=== PATIENT | female | born 1975 | race Caucasian/White ===

== ENCOUNTER 2016-07-06 19:16 | Emergency (ER) | payer MEDICARE, MEDICAID ==
[~2016-07-06] VITALS: Ht 160 cm; Wt 63.5 kg
[~2016-07-06 19:16] MED LIST: ACETAMINOPHEN &1 TA1 PO; CIPRO 500MG TA500 MG PO; DEPO-PROVER150 MG/M1 IM; DICLOFENAC SODI75 M3 PO; ESCITALOPRAM20 MG PO; FLEXERIL10 MG PO; HYDROCODONE-APA1 TA2 PO; HYDROCODONE-APA1 TAB PO; IBU-8800 MG PO; IBUPROFEN800 MG PO; K-TAB10 MEQ PO; KEFLEX 500MG.500 MG PO; KLONOPIN1 M2 PO; MAXALT5 MG PO; NEURONTIN600 M1 PO; PERCOCET 5/3251 EACH PO; PREDNISONE 20MG20 MG PO; TIZANIDINE HCL2 MG PO; VENTOLIN H0.09 MG/Ac IH; VISTARIL25 M1 PO; ZITHROMAX Z PA250 MG PO; ZOFRAN4 MG PO
--- NOTE | 2016-07-06 20:14 | Urgent Treatment Center Report ---
History of Present Issue Date/Time Seen by Provider 07/06/162013 Visit Reason Pt arrived:Walked Presenting Problem:C/O NON PRODUCTIVE COUGH, CHEST CONGESTION, SORE THROAT X 5 DAYS Location if Accident: Onset of symptoms date/time:/ or onset unknown for:MEDICAL HX UNKNOWN Have you (or family members/close friends) recently traveled outside the [place]? N If Yes, where/when: Have you had exposure to infectious disease within the past month? TB? Other? Specify: Patient states that she has had a cough that is not productive for around a week states that she has had chest congestion and sore throat too states that she has continued to cough and no improvement in symptoms so she came to get checked out ALLERGIES Coded Allergies: ketorolac (From TORADOL) (10/05/15) naproxen (10/05/15) tramadol (10/05/15) Home Medications Active Scripts Prednisone (Prednisone 20MG) 20 MG PO BID #10 TAB Prov: 10/05/15 Hydroxyzine Pamoate (Vistaril 25MG CAP) 25 MG PO Q8H #15 CAP Prov: 10/05/15 Reported Medications Rizatriptan Benzoate (Maxalt) 5 MG PO BID PRN PRN MIGRAINE Gabapentin (Neurontin) 600 MG PO TID History Medical History General CAD? No Angina: No [place]: No Hypertension? No Hyperlipidemia? No CHF? No DVT? No PE? No COPD? No Asthma? Yes Anemia? No GERD? No Gastric ulcers? No GI Bleed? No Hernia? No Thyroid Problems? No Hypothyroidism? No CVA? No Seizures? No Diabetes? No Renal Insuffiency? No UTI? No Stones? No BPH? No GB Disease: No Nephritic Syndrome? No Asplenia? No Hepatitis? No Sickle Cell Disease? No Arthritis? Yes Migraines? No Cataracts? No Glaucoma? No MRSA? No HIV? No TB? No Anxiety? Yes Depression? No Cancer? No More? No Immunization HX DT/Tetanus > 10 Years Ago Flu Refused Pneumonia Refuses Surgical Hx Previous Surgery?Y EX LAP CYST REMOVED OVAR Tubal Ligation GALLBLADDER REMOVED BLADDER SURGERY X 2,CYSTO LT BREAST BIOPSY LAP PARTIAL HYSTERECTOMY Family History Family HX Diabetes No CAD Yes Hypertension No Hyperlipidemia No Cancer No TB No Social History Smoking Hx Smoker: Current Every Day Smoker Tobacco: Yes Type Cigarettes Packs/day < 1 Pack Alcohol Alcohol: No Review of Systems All Other Systems Reviewed and Negative ENT ear pain, nose discharge, nose congestion, throat pain, throat swelling. Respiratory cough Physical Exam Vital Signs Vital Signs Date Time Temp Pulse Resp B/P Pulse O2 O2 Flow FiO2 Ox Delivery Rate 07/06 1926 98.0 84 22 119/63 96 General Appearance normal appearance, WD/WN, no apparent distress Respiratory Status Yes: trachea midline, chest symmetrical, non tender chest. No: respiratory distress. 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 No Results/Orders Orders Procedure Date/time Status CHEST(2 VIEWS-NOT PORTABLE) 07/06 1929 Active Departure Departure Time of Disposition 2041 Disposition DC Home or Self Care(routine) Clinical Impression Primary Impression: Upper respiratory infection Qualifiers: URI type: unspecified URI Qualified Code: J06.9 - Acute upper respiratory infection, unspecified Condition STABLE Patient Instructions DI for Cough -- Adult, Sore Throat Additional Instructions Drink plenty of fluids Follow up with family doctor Over the counter Motrin or Tylenol as need for fever Take medication as prescribed Return if needed Discharge Counseling Counseled pt/family regarding diagnosis, test results, medications/RX, home care, follow up needs Prescriptions Current Visit Scripts Azithromycin (Zithromycin (Z-FLORIN) 250MG Tab) 250 MG PO DAILY #6 TAB TAKE TWO (2) TABLETS ON DAY 1, THEN ONE (1) TABLET DAY #2 THRU #5 Methylprednisolone (Medrol Dose Florin) 4 MG PO UD #1 FLORIN TAKE DIRECTED ON PACKAGING at 2045
[2016-07-06] MEDS ORDERED: MEDROL 4MG. DOSE4 MG PO (20:44)
[2016-07-06] MEDS ORDERED: ZITHROMAX Z PA250 MG PO (20:44)
--- NOTE | 2016-07-06 20:45 | RADIOLOGY REPORT PS360 ---
CHEST(2 VIEWS-NOT PORTABLE) ORDERING PHYSICIAN : FABIAN REYES APRN PATIENT AGE: 40 years GENDER: Female INDICATION: Cough congestionCHEST CONGESTION, COUGH PROCEDURE: CHEST(2 VIEWS-NOT PORTABLE) FINDINGS: Previous chest film 01/31/2015. Today's study shows no significant new findings. No focal infiltrate. No pneumothorax. No pleural effusion.. The patient has pectus excavatum deformity. With this the inward position of the inferior sternum and xiphoid yield a accentuated heart size indicates injury markings at the lung bases but this appears stable with no acute findings. Mindy and mediastinal structures unremarkable. T-spine intact. IMPRESSION ----- Stable chest Nothing definite acute at chest Pectus excavatum
[2016-07-06 21:01] VITALS: BP 119/63
== END 2016-07-06 21:03 | disposition home or self-care (01) ==
LOC: UTC 19:16
DX: J06.9 Acute upper respiratory infection, unspecified (principal); Z72.0 Tobacco use; F41.9 Anxiety disorder, unspecified

== ENCOUNTER 2017-01-29 15:29 | Emergency (ER) | payer MEDICARE, MEDICAID ==
[~2017-01-29] VITALS: Ht 160 cm; Wt 59.9 kg
[~2017-01-29 15:29] MED LIST changes: +MEDROL 4MG. DOSE4 MG PO
[2017-01-29] MEDS ORDERED: PREDNISONE 10MG10 MG PO (16:11)
--- NOTE | 2017-01-29 16:12 | Urgent Treatment Center Report ---
History of Present Issue Date/Time Seen by Provider 01/29/17 1603 Visit Reason Pt arrived:Walked Presenting Problem:PT STATES FOR 1 WEEK SHE HAS HAD A RASH ON HER ARMS. EXPOSED TO TREES AND POSSIBLY POISON RANDA. Location if Accident: Onset of symptoms date/time:/ or onset unknown for:MEDICAL HX UNKNOWN Have you (or family members/close friends) recently traveled outside the [place]? N If Yes, where/when: Have you had exposure to infectious disease within the past month? TB? Other? 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 No Angina: No [place]: No Hypertension? No Hyperlipidemia? No CHF? No DVT? No PE? No COPD? No Asthma? Yes Anemia? No GERD? No Gastric ulcers? No GI Bleed? No Hernia? No Thyroid Problems? No Hypothyroidism? No CVA? No Seizures? No Diabetes? No Renal Insuffiency? No UTI? No Stones? No BPH? No GB Disease: No Nephritic Syndrome? No Asplenia? No Hepatitis? No Sickle Cell Disease? No Arthritis? Yes Migraines? No Cataracts? No Glaucoma? No MRSA? No HIV? No TB? No Anxiety? Yes Depression? No Cancer? No More? No Immunization HX DT/Tetanus > 10 Years Ago Flu Refused Pneumonia Refuses Surgical Hx Previous Surgery?Y EX LAP CYST REMOVED OVAR Tubal Ligation GALLBLADDER REMOVED BLADDER SURGERY X 2,CYSTO LT BREAST BIOPSY LAP PARTIAL HYSTERECTOMY Family History Family HX Diabetes No CAD Yes Hypertension No Hyperlipidemia No Cancer No TB No Social History Smoking Hx Smoker: Current Every Day Smoker Tobacco: Yes Type Cigarettes Packs/day < 1 Pack Alcohol Alcohol: No Review of Systems All Other Systems Reviewed and Negative Skin rash Physical Exam Vital Signs Vital Signs Date Time Temp Pulse Resp B/P Pulse O2 O2 Flow FiO2 Ox Delivery Rate 01/29 1539 98.0 74 18 107/63 97 General Appearance normal appearance, WD/WN, no apparent distress Respiratory Status Yes: trachea midline, chest symmetrical, non tender chest. No: respiratory distress. Cardiovascular normal exam, regular rate/rhythm Neurologic alert, normal exam, oriented x 3 Skin rash, Raised liner rash like that seen with poison randa on bilateral upper arms describes as itchy raised rash Medical Decision Making LABS/Meds/Orders Pt receiving controlled substance in ED? No Results/Orders Current Medication Orders Sig/Keila Start time Last Medication Dose Route Stop Time Status Admin Methylprednisolone 125 MG ONCE ONE 01/29 1600 DC Sodium Succinate IM 01/29 1601 Departure Departure Time of Disposition 1608 Disposition DC Home or Self Care(routine) Clinical Impression Primary Impression: Poison randa dermatitis Condition STABLE Patient Instructions DI for Poison Randa Allergy, Poison Randa, Poison Crouse, Poison [place] Additional Instructions Over the counter Calamine lotion, aveeno oatmeal baths etc to help dry rash and also help with itching Take medication as prescribed Use cream to aid with rash Return if needed Follow up with family doctor Discharge Counseling Counseled pt/family regarding diagnosis, medications/RX, home care, follow up needs Prescriptions Current Visit Scripts Prednisone (Prednisone 10MG) 10 MG PO BID #10 TAB at 1612
[2017-01-29 16:14] VITALS: BP 107/63
--- OUTSIDE RECORDS SUMMARY | 2017-01-31 17:44 | External Medical Summary Rpt | CCD ---
Author Author , [facility] Organization [facility] Address Unknown Phone Care Team Providers Care Geological Specialist Name Role Phone KARINA OLSEN MD, PSC, Unavailable Unavailable KARINA OLSEN MD, PSC HERMAN CORONADO, HERMAN Unavailable Unavailable [facility] Unavailable Unavailable & INTER, [facility] RAYGOZA ALL, RAYGOZA ALL Unavailable Unavailable ERNST CON, Unavailable Unavailable ERNST CON CELLAROSI - YORBA Unavailable Unavailable PAT, CELLAROSI - YORBA PAT CHIPPS KATHERINE & Unavailable Unavailable DUBILIER, CHIPPS KATHERINE & DUBILIER [facility], Unavailable Unavailable [facility] Unavailable Unavailable [facility], [facility] ASUNCION, ASUNCION Unavailable Unavailable ASUNCION JOSE LUIS, Unavailable Unavailable ASUNCION JOSE LUIS DUDEE, JITANDER S, Unavailable Unavailable DUDEE, JITANDER S DUOSVALDO NANCY DUFF NANCY Unavailable Unavailable SARITA CHAIREZ Unavailable Unavailable SARITA DE LOS SANTOS Unavailable Unavailable EDMUNDO HAIRSTON, Unavailable Unavailable EDMUNDO STEIN JR ELZ, Unavailable Unavailable JR ANNAMARIA MIRANDA GAINEY Unavailable Unavailable YOSHI [facility] Unavailable Unavailable HOSPITA, [facility] Unavailable Unavailable [facility], [facility] JOSE EDUARDO CHRISTENSEN MD, Unavailable Unavailable Daniel BLANCO MD, Unavailable Unavailable Daniel DUBOIS RHONDA G, Unavailable Unavailable MARCIE BARRAGAN CARLOS, HARPEL Unavailable Unavailable [facility] Unavailable Unavailable INC, [facility] Unavailable Unavailable HOSPITAL P, [facility] P NANDO HUNTLEY, Unavailable Unavailable NANDO HUNTLEY [facility], Unavailable Unavailable [facility], Unavailable Unavailable [facility] ILUYOMADE ROT, Unavailable Unavailable ILUYOM[facility] ROT PILAR II PRAVEEN, PILAR Unavailable Unavailable II PRAVEEN PILAR II, JUSTIN C, Unavailable Unavailable PILAR II, JUSTIN C JEREMIAH DIONTE, JEREMIAH Unavailable Unavailable DIONTE JOHNNA SILVINA, JOHNNA Unavailable Unavailable SILVINA [facility] Unavailable Unavailable IM[facility]ING [facility], [facility] FERNANDEZ JOAO, FERNANDEZ Unavailable Unavailable JOAO FERNANDEZ JOAO, FERNANDEZ Unavailable Unavailable JOAO FERNANDEZ, EN A, Unavailable Unavailable FERNANDEZ, EN A [facility] Unavailable Unavailable [facility], [facility] SHEA CRI, SHEA CRI Unavailable Unavailable ANNIE SCOTT JR, Unavailable Unavailable ANNIE SCOTT JR JOSE, REGINE JOSE Unavailable Unavailable LORRAINE HAM, LORRAINE HAM Unavailable Unavailable [facility] Unavailable Unavailable SERVICES, [facility] SHAWNEE CAR, Unavailable Unavailable [facility] CAR NICKELS NANCY, NICKELS Unavailable Unavailable NANCY [facility], Unavailable Unavailable [facility], [facility] Unavailable Unavailable LAB, [facility] PICKLESIMER JR KEREN, Unavailable Unavailable PICKLESIMER JR KEREN NATALYA, BIPIN, NATALYA, Unavailable Unavailable BIPIN AGUIRRE PAD, AGUIRRE PAD Unavailable Unavailable AGUIRRE PAD, AGUIRRE PAD Unavailable Unavailable [facility] PIPELINE SUPERINTENDENT DIVISION, RECHTIN Unavailable Unavailable PIPELINE SUPERINTENDENT DIVISION RECHTIN PIPELINE SUPERINTENDENT DIVISION, RECHTIN Unavailable Unavailable PIPELINE SUPERINTENDENT DIVISION KOEHLER TERRI, Unavailable Unavailable KOEHLER TERRI KOEHLER TERRI, Unavailable Unavailable KOEHLER TERRI [facility] Unavailable Unavailable MANAGEMENT, [facility] AMES SHAWNEE, AMES Unavailable Unavailable SHAWN[facility] MONTEMAYOR RENTERIA, MONTEMAYOR Unavailable Unavailable RENTERIA SHIRAKBARI ALI, Unavailable Unavailable SHIRAKBARI ALI TACHO JAEGER S, Unavailable Unavailable TACHO JAEGER S [facility] Un[facility] FABIO CROW, Unavailable Unavailable [facility], Unavailable Unavailable [facility] ABAD DIONTE, Unavailable Unavailable ABAD DIONTE SERA PHI, SERA PHI Unavailable Unavailable AMENA NANDO C, Unavailable Unavailable AMENA NANDO Farnaz [facility], Unavailable Unavailable [facility] Unavailable Unavailable [address], [facility] SHERRY PEARCE, Unavailable Unavailable SHERRY PEARCE LUCIUS W, LUCIUS W Unavailable Unavailable WORKS EDWARDO, WORKS EDWARDO Unavailable Unavailable MARYA MAT, MARYA MAT Unavailable Unavailable Purpose Continuity of Care Document - 2007 through 2016 Problems Code Diagnosis DOS Provider Status Q676 PECTUS 07-06-2016 [place] [facility] R05 COUGH 07-06-2016 [place] [facility] R0989 OT SPEC SX 07-06-2016 [place] & SIGNS MEDICAL INVLV THE IMAGING ASS CIRC & RESP SYS X15239 SPONDYLOSIS 03-05-2016 [facility] W/O PAIN MYELOPATH/R MANAGEMENT ADICULOPATH Y LUMB RGN M5413 RADICULOPAT 03-05-2016 [facility] PAIN CERVICOTHOR MANAGEMENT ACIC REGION M5417 RADICULOPAT 03-05-2016 [facility] PAIN LUMBOSACRAL MANAGEMENT REGION Z5181 ENCOUNTER 03-05-2016 [facility] THERAPEUTIC DRUG LEVEL MONITORING C78110 JAIL 03-05-2016 [facility] CURRENT USE [facility] ANALGESIC U18848 OTHER LONG 03-05-2016 [facility] PAIN CURRENT MANAGEMENT DRUG THERAPY M4802 SPINAL 01-23-2016 [place] STEN[facility]IS [facility] CERVICAL IMAGING ASS REGION M5020 OTH 01-23-2016 [facility] CERVICAL [facility] DISC INC DISPLACEMEN T UNS CERV REGION M5021 OT CERV 01-23-2016 [place] DISC MEDICAL DISPLACMENT IMAGING ASS HIGH CERVICAL REG E01859 OTHER 01-23-2016 [place] CERVICAL MEDICAL DISC IMAGING ASS DEGENERATIO N AT C6-C7 LEVEL M542 CERVICALGIA 01-23-2016 [place] [facility] R410 DISORIENTAT 10-11-2015 [place] ION MEDICAL UNSPECIFIED IMAGING ASS L551 SUNBURN OF 10-05-2015 [facility] DEGREE INC Z720 TOBACCO USE 10-05-2015 [facility] INC N644 MASTODYNIA 07-24-2015 [facility] N6011 DIFFUSE 07-23-2015 [facility]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 N63 UNSPECIFIED 07-23-2015 [place] IN MEDICAL BREAST IMAGING ASS R928 OTH ABNORM 07-23-2015 [place] & MEDICAL INCONCLUSIV IMAGING ASS E FIND ON DX IMAG BREAST N3010 INTERSTITIA 06-25-2015 [facility] EDUARDO Lyon 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 N6019 DIFFUSE 06-25-2015 [facility] EDUARDO [place] 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 R102 PELVIC AND 06-07-2015 [place] PERINEAL MEDICAL PAIN IMAGING ASS R1031 RIGHT LOWER 06-07-2015 [facility] PAIN INC Z1231 ENCOUNTER 06-07-2015 [place] SCREENING MEDICAL MAMMO MALIG IMAGING ASS NEOPLASM BREAST N390 URINARY 05-24-2015 [facility] TRACT [facility] INFECTION INC SITE NOT SPECIFIED N736 FEMALE 05-24-2015 [facility] EDUARDO [place] PELVIC AMPARO TIMMONS PERITONEAL ADHESIONS POSTINFECTI VE R65868 ENCOUNTER 05-24-2015 [facility] EDUARDO [place] VOCATIONAL REHABILITATION ADMINISTRATOR EXAM AMPARO TIMMONS GENERAL RTN W/O ABNORMAL FIND Z1212 ENCOUNTER 05-24-2015 [facility] EDUARDO [place] SCREENING AMPARO TIMMONS MALIGNANT NEOPLASM RECTUM A084 VIRAL 04-24-2015 [facility] INTESTINAL [facility] INFECTION INC UNSPECIFIED J12147 UNSPECIFIED 04-24-2015 [facility] ASTHMA [facility] UNCOMPLICAT INC ED K529 NONINFECTIV 04-24-2015 [facility] GASTROENTER PLLC ITIS & COLITIS UNS R109 UNSPECIFIED 04-24-2015 [place] ABDOMINAL MEDICAL PAIN IMAGING ASS R112 NAUSEA WITH 04-24-2015 [place] VOMITING MEDICAL UNSPECIFIED IMAGING ASS R197 DIARRHEA 04-24-2015 [place] UNSPECIFIED MEDICAL IMAGING ASS N44537 PAIN IN 03-08-2015 [facility] SHOULDER [facility] M5032 OTH CERV 03-08-2015 [place] [facility] DIS[facility] SERV DEGENERATIO FOUNDATION N MID-CERVICA L REGION U01354 PAIN IN 03-08-2015 [place] [facility] RIGHT ARM SERV [facility] H6690 OTITIS 03-07-2015 [facility] MEDIA PHYSICIANS UNSPECIFIED GROUP UNSPECIFIED EAR M5010 CERVICAL 02-27-2015 [facility] DISC D/O [facility] W/RADICULOP INC ATHY UNS CERV RGN M5030 OTH 02-27-2015 KARINA OLSEN CERVICAL , PSC DISC DEGENERATIO N UNS CERV REGION M5412 RADICULOPAT 02-27-2015 KARINA OLSEN HY CERVICAL , PSC REGION J209 ACUTE 01-31-2015 [facility] BRONCHITIS [facility] UNSPECIFIED INC R945 ABNORMAL 01-31-2015 [facility] RES[facility] PHYSICIANS, LIVER PLLC FUNCTION STUDIES 7220 DISPLCMT 01-01-2015 KARINA OLSEN, CERV , PSC INTERVERT DISC WITHOUT MYELOPATHY 7234 BRACHIAL 01-01-2015 KARINA OLSEN, NEURITIS OR , PSC RADICULITIS NOS 7210 CERVICAL 12-19-2014 [place] SPONDYLOSIS MEDICAL WITHOUT IMAGING ASS MYELOPATHY 7224 DEGENERATIO 12-19-2014 [place] N OF MEDICAL CERVICAL IMAGING ASS INTERVERTEB RAL DISC 7231 CERVICALGIA 12-19-2014 [place] [facility] 7213 LUMBOSACRAL 11-09-2014 [place] MEDICAL SPONDYLOSIS IMAGING ASS WITHOUT MYELOPATHY 7242 LUMBAGO 11-09-2014 [place] [facility] 7820 DISTURBANCE 11-09-2014 [place] OF SKIN MEDICAL SENSATION IMAGING ASS 8472 LUMBAR 11-09-2014 [facility] SPRAIN AND [facility] STRAIN INC 56379 ABDOMINAL 10-05-2014 [place] PAIN RIGHT MEDICAL LOWER IMAGING ASS QUADRANT 2768 HYPOPOTASSE 09-21-2014 [facility] & INTER 15203 OTH 09-21-2014 [facility] EXTRAPYRAMI [facility]EDIATRICS HERIBERTO & INTER DZ&ABNORM MOVMNT DISORDER 18938 ABDOMINAL 09-21-2014 [facility] PAIN, PEDIATRICS UNSPECIFIED & INTER SITE 5920 CALCULUS OF 09-16-2014 [place] KID[facility] 6202 OTHER AND 09-16-2014 [facility] UNSPECIFIED PHYSICIANS, OVARIAN PLLC CYST V642 SURG/OTH 07-29-2014 [facility] PROC NOT MEM [facility] CARRIED OUT INC BECAUSE PTS DECN 7295 PAIN IN 07-17-2014 [place] SOFT MEDICAL TISSUES OF IMAGING ASS LIMB 89597 SWELLING OF 07-17-2014 [facility] LIMB [facility] INC 8439 SPRAIN&STRA 07-17-2014 [facility] IN OF [facility] UNSPECIFIED INC SITE OF HIP&THIGH 9594 INJURY 07-17-2014 [place] OTHER AND MEDICAL UNSPECIFIED IMAGING ASS HAND EXCEPT FINGER V5869 LONG-TERM 07-17-2014 [facility] (CURRENT) [facility] USE OF INC OTHER MEDICATIONS 5751 OTHER 06-25-2014 [facility] CHOLECYSTIT [facility] IS INC 5758 OTHER 06-25-2014 [facility] SPECIFIED [facility] P GALLBLADDER 65201 ABDOMINAL 06-25-2014 [facility] PAIN, LEFT [facility] P QUADRANT 486 PNEUMONIA, 06-05-2014 [facility] UNSPECIFIED & INTER 4619 ACUTE 06-03-2014 [facility] SINUSITIS, PEDIATRICS UNSPECIFIED & INTER 25721 UNSPECIFIED 05-05-[address] [facility] [address] [facility] SUBACUTE HOSPITAL P IRIDOCYCLIT IS V146 PERSONAL 05-05-[address] [facility] ALLERGY TO [facility] P ANALGESIC AGENT V148 PERSONAL 05-05-[address] [facility] ALLERGY OTCLARKS [facility] P SPEC MEDICINAL AGTS 37489 OTHER ACUTE 09-21-2013 [facility] N EMERGENCY POSTOPERATI PHYS VE PAIN 11995 UNSPECIFIED 09-21-2013 [facility] EM[facility]GENC[facility] CONSTIPATIO PHYS N 43493 ABDOMINAL 09-21-2013 [facility] PAIN OTHER MEDICAL SPECIFIED IMAGING ASS SITE V8801 ACQUIRED 09-21-2013 [place] ABSENCE OF MEDICAL BOTH CERVIX IMAGING ASS AND UTERUS 2189 LEIOMYOMA 09-19-2013 [facility] OF UTERUS, KATHERINE & UNSPECIFIED DUBILIER 6170 ENDOMETRIOS 09-19-2013 [facility] IS OF KATHERINE & UTERUS DUBILIER 6250 DYSPAREUNIA 09-19-2013 [facility] THE [facility] 6253 DYSMENORRHE 09-19-2013 [facility] A ANESTH OF THE BLUE 6259 UNSPEC 09-19-2013 [facility] SYMPTOM [facility] ASSOC INC W/FEMALE GENITAL ORGANS 6264 IRREGULAR 09-19-2013 [facility] MENSTRUAL [facility] CYCLE INC 8409 SPRAIN&STRA 08-11-2013 [facility] IN UNSPEC N EMERGENCY SITE PHYS SHOULDER&UP PER ARM E8888 OTHER FALL 08-11-2013 [facility] N EMERGENCY PHYS 69382 OTHER 01-13-2013 [facility] PAIN 70281 UNSPECIFIED 01-11-2013 [place] [facility] IN CCE & UNS SITE 48820 UNSPECIFIED 01-11-2013 [facility] PERFORATION SERVICES OF TYMPANIC MEMBRANE 14391 UNSPECIFIED 01-11-2013 [facility] 462 ACUTE 01-11-2013 [facility] PHARYNGITIS [facility]Y [facility] 7841 THROAT PAIN 01-11-2013 [facility] 43456 NAUSEA 01-11-2013 [facility] 86180 PAIN IN 05-07-2012 [facility] PELVIC HOSPITA REGION AND THIGH 7265 ENTHESOPATH 05-03-2012 RE[facility] Hamilton OF HIP REGION 51592 UNSPECIFIED 02-24-2012 [facility] TEAR FILM TERRI INSUFFICIEN CY 9181 SUPERFICIAL 02-24-2012 [facility] INJURY OF TERRI CORNEA 88069 MIGRAINE 09-26-2011 [facility] SHEPHERD UNSP W/O INTRACT W/O STATUS MIGRAINOSUS 7062 SEBACEOUS 09-26-2011 [facility] SHEPHERD CYST 66483 INSOMNIA 09-26-2011 RE[facility] SHEPHERD UNSPECIFIED 8406 SUPRASPINAT 09-26-2011 RE[facility] SHEPHERD US SPRAIN AND STRAIN 17968 CONTUSION 09-18-2011 SAR[facility] BANERJEEU OF HAND E918 CAUGHT 09-18-2011 SARITA EDWARDO ACCIDENTALL Y IN OR BETWEEN OBJECTS 5289 OTHER&UNSPE 07-05-2011 [facility] PIPELINE SUPERINTENDENT DIVISION CIFIED DISEASES THE ORAL SOFT TISSUES 4659 ACUTE URIS 03-06-2011 REBECCA SHEPHERD OF UNSPECIFIED SITE 42287 OTHER ACUTE 02-04-2011 [facility] EMERGENCY SERVICES 7881 DYSURIA 02-04-2011 [facility] INTER 19786 DYSPHASIA 01-20-2011 [place] DUE TO [facility] ULAR DISEASE 71342 ESOPHAGEAL 01-20-2011 [place] REFLUX [facility] 30165 DYSPHAGIA 01-20-2011 [facility] [place] UNSPECIFIED RADIOLOGY 5990 URINARY 01-16-2011 [facility]CT [facility] INFECTION & INTER SITE NOT SPECIFIED V0481 NEED 01-16-2011 [facility] PROPHYLACTI [facility]EDIATRICS C & INTER VACCINATION &INOCULATIO N FLU 7821 RASH AND 09-24-2010 [facility] OTHER PEDIATRICS NONSPECIFIC & INTER SKIN ERUPTION 4660 ACUTE 07-02-2010 [facility] BRONCHITIS PEDIATRICS & INTER 7862 COUGH 07-02-2010 [facility] INTER 6929 CONTACT 06-03-2010 [place] DERMAT[facility]IS[facility] DERMATOLOGY OTHER AND SKIN ECZEMA DUE CARE UNSPEC CAUSE 7048 OTHER 06-03-2010 [place] SPECIFIED DERMATOLOGY DISEASE OF AND SKIN HAIR&HAIR CARE FOLLICLES 4243 PULMONARY 05-29-2010 [facility] DISORDERS 7823 EDEMA 05-29-2010 [facility] HOSPITA 71290 OTHER CHEST 05-29-2010 [place] PAIN [facility] 4293 CARDIOMEGAL 05-23-2010 [facility] EMERGENCY SERVICES 92640 SHORTNESS 05-23-2010 [facility] [place] OF BREATH RADIOLOGY 5951 CHRONIC 04-03-2010 [facility] INTERSTITIA [facility]EDIATRICS L CYSTITIS & INTER 9595 INJURY 04-03-2010 [facility] OTHER AND PEDIATRICS UNSPECIFIED & INTER FINGER 1330 SCABIES 01-17-2010 [facility] & INTER 73699 ABDOMINAL 01-03-2010 [facility], N EMERGENCY PERIUMBILIC SERV 7245 UNSPECIFIED 12-17-2009 [facility] 42757 ABDOMINAL 12-17-2009 [facility], N EMERGENCY GENERALIZED PHYS 43377 UNSPECIFIED 10-13-2009 [facility]Y OF URINE SERVICES ASSOCIATES V4589 OTHER 10-13-2009 [facility] POSTSURGICA EMERGENCY L STATUS SERVICES OTHER ASSOCIATES 96369 URINARY 08-31-2009 BRIAN BECKWITH 6918 OTHER 08-09-2009 [facility] ATOPIC PEDIATRICS DERMATITIS & INTERNAL AND RELATED MEDICINE CONDITIONS PLLC 7291 UNSPECIFIED 07-10-2009 [facility] H SLEEP AND [facility] MYOSITIS 07491 UNSPECIFIED 06-13-2009 [place] VAGINITIS OBSTETRICS AND AND VULVOVAGINI GYNECOLOGY TIS 3671 MYOPIA 05-10-2009 YUSUF MON S 23374 OTHER 05-10-2009 RON[facility] MON S DEVIATION OF EYE MOVEMENTS 7149 UNSPECIFIED 03-22-2009 [facility] [employer] [employer] Y POLYARTHROP ATHY 40258 DENTAL 03-21-2009 SANDEEP HUNTLEY EXTENDING INTO DENTINE 5220 PULPITIS 03-21-2009 NANDO HUNTLEY 52905 UNSPECIFIED 03-18-2009 [facility] ARTHOPATHY, SERVICES HAND ASSOCIATES 44694 LUMP OR 12-27-2008 [place] MASS IN [facility] BREAST [facility] 66441 CHRONIC 08-18-2008 PATHOLOGY & CHOLECYSTIT CYTOLOGY IS LAB 7283 OTHER 08-16-2008 [facility] DISORDERS 85297 ABDOMINAL 08-03-2008 [place] PAIN RIGHT [facility] UPPER HOSPITAL QUADRANT 55186 VOMITING 07-25-2008 [facility] 15812 NAUSEA WITH 07-21-2008 [place] VOMITING [facility] 74360 UNSPECIFIED 07-18-2008 [facility] PYELONEPHRI [facility] TIS 57284 METHICILLIN 2007 [facility] SUSCEPTIBLE [facility]PITAL STAPH INF CCE & UNS SITE 6825 CELLULITIS 2007 [place] AND ABSCESS [facility] V090 INFECTION 2007 [facility] RESISTANT PENICILLINS V6759 OTHER 2007 [place] [facility] OTHER E87.6 HYPOKALEMIA F11.90 OPIOID USE, UNSPECIFIED , UNCOMPLICAT ED F13.10 SEDATIVE, HYPNOTIC OR ANXIOLYTIC ABUSE, UNCOMPLICAT ED G89.18 OTHER ACUTE POSTPROCEDU RAL PAIN J18.9 PNEUMONIA, UNSPECIFIED ORGANISM J40 BRONCHITIS, NOT SPECIFIED ACUTE OR CHRONIC K52.9 NONINFECTIV E GASTROENTER ITIS AND COLITIS, UNSPECIFIED K59.00 CONSTIPATIO N, UNSPECIFIED L55.1 [place] OF SECOND DEGREE M24.20 DISORDER OF LIGAMENT, UNSPECIFIED SITE M50.20 OTHER CERVICAL DISC DISPLACEMEN T, UNSP CERVICAL REGION N63 UNSPECIFIED [place] IN BREAST N83.209 UNSPECIFIED OVARIAN CYST, UNSPECIFIED SIDE R10.9 UNSPECIFIED ABDOMINAL PAIN R92.8 OTH ABN AND INCONCLUSIV E FINDINGS ON DX IMAGING OF BREAST R94.5 ABNORMAL RESULTS OF LIVER FUNCTION STUDIES S43.401A UNSPECIFIED SPRAIN OF RIGHT SHOULDER JOINT, INIT ENCNTR S73.101A UNSPECIFIED SPRAIN OF RIGHT HIP, INITIAL ENCOUNTER T88.7XXA UNSP ADVERSE EFFECT OF DRUG OR MEDICAMENT, INIT ENCNTR Z12.31 ENCNTR SCREEN MAMMOGRAM FOR MALIGNANT NEOPLASM OF BREAST Allergies, Adverse Reactions, Alerts Type Allergy to substance Adverse Reaction to Substance Substance Reaction Severity NO KNOWN ALLERGIES Unknown Unknown Medications Na ND Rx Da Fi Fi Am Da Di Ph RX Ph St me C No te ll ll ou ys ag ar # ys at rm s nt no ma ic us Or Da si cy ia de te s n re d DE 00 01 0 No ED 05 -1 NI 40 7- Lo SO 01 20 ng NE 82 14 er 0 20 Ac ti MG ve TA BL ET IN 51 01 0 No DO 07 -1 ME 90 7- Lo TH 19 20 ng AC 02 14 er IN 0 Ac 25 ti ve MG CA PS UL E CE 62 01 0 No PH 75 -1 AL 60 7- Lo EX 29 20 ng IN 48 14 er 8 50 Ac 0 ti MG ve CA PS UL E DI 00 06 06 0 60 60 HO 60 KN Ac PH 60 -0 -0 .0 ME 18 IG ti EN 33 7- 7- 00 TO 53 HT ve HY 33 [address] 93 11 11 JUANA AM 2 PH EL IN AR A E MA 25 CY MG CA PS UL E 54 03 03 0 20 10 HO 60 KN Ac 83 -1 -1 0. ME 14 IG ti 80 5- 5- 00 TO 40 HT ve 54 20 20 0 WN 2 48 11 11 JUANA 0 PH EL AR A MA CY CL 45 01 02 05 17 28 HO 60 KN Ac OT 80 -1 -1 .0 ME 11 IG ti RI 20 7- 4- 00 TO 46 HT ve MA 43 20 20 WN 5 ZO 41 11 11 JUANA LE 1 PH EL AR A 1% MA CY CR EA M CL 45 01 01 05 17 28 HO 60 KN Ac OT 80 -1 -1 .0 ME 11 IG ti RI 20 7- 7- 00 TO 46 HT ve MA 43 20 20 WN 5 ZO 41 11 11 JUANA LE 1 PH EL AR A 1% MA CY CR EA M ME 00 12 12 00 21 7 71 HE Ac TH 60 -0 -1 .0 L- 62 ND ti YL 34 2- 7- 00 MA 67 ER ve DE 59 20 20 RT 5 SO ED 31 09 09 N NI 5 PH RO SO AR BE LO MA RT NE CY W 4 #5 MG 71 DO SE PK AM 00 12 12 00 15 5 71 HE Ac OX 78 -0 -1 .0 L- 62 ND ti IC 12 2- 7- 00 MA 67 ER ve IL 61 20 20 RT 6 SO LI 30 09 09 N N 5 PH RO 50 AR BE 0 MA RT MG CY W CA #5 PS 71 UL E NA 00 12 12 00 60 30 71 KN Ac DE 09 -0 -1 .0 L- 62 IG ti OX 30 3- 7- 00 MA 96 HT ve EN 14 20 20 RT 0 91 09 09 JUANA 50 0 PH EL 0 AR A MG MA CY TA BL #5 ET 71 OX 00 12 12 00 20 2 22 HE Ac YC 40 -0 -1 .0 L- 24 ND ti OD 60 9- 7- 00 MA 04 ER ve ON 51 20 20 RT 8 SO E- 20 09 09 N AC 1 PH RO ET AR BE AM MA RT IN CY W OP HE #5 N 71 5- 32 5 54 12 12 00 15 30 71 KN Ac 45 -0 -1 .0 L- 62 IG ti 80 3- 7- 00 MA 95 HT ve 94 20 20 RT 9 51 09 09 JUANA 0 PH EL AR A MA CY #5 71 DE 68 12 12 00 12 2 71 HE Ac OM 38 -0 -1 .0 L- 63 ND ti ET 20 5- 7- 00 MA 33 ER ve DAUGHERTY 04 20 20 RT 3 SO ZI 10 09 09 N NE 1 PH RO AR BE 25 MA RT CY W MG #5 TA 71 BL ET 00 12 12 00 90 30 WA 71 KN Ac 37 -0 -1 .0 L- 62 IG ti 80 3- 7- 00 MA 95 HT ve 75 20 20 RT 8 19 09 09 JUANA 3 PH EL AR A MA CY #5 71 IB 68 11 12 00 30 7 WA 71 WI Ac UP 64 -2 -0 .0 L- 61 LS ti RO 50 3- 3- 00 MA 05 ON ve FE 22 20 20 RT 4 N 25 09 09 DO 80 4 PH NA 0 AR LD MG MA R CY TA BL #5 ET 71 00 11 12 00 15 2 WA 44 HE Ac 40 -2 -0 .0 L- 92 ND ti 60 3- 3- 00 MA 58 ER ve 35 20 20 RT 8 SO 80 09 09 N 1 PH RO AR BE MA RT CY W #5 71 NO 00 09 12 00 28 28 WA 71 WI Ac RT 55 -2 -0 .0 L- 61 LS ti RE 59 8- 3- 00 MA 05 ON ve L 01 20 20 RT 2 1- 05 09 09 DO 35 8 PH NA AR LD 28 MA R CY TA BL #5 ET 71 Vital Signs 05-06-2013 08:00 Name Value Interpretat Reference Comment ion Range BP 107 mm[Hg] Diastolic BP Systolic 141 mm[Hg] Heart 82 /min Rate/Pulse O2% 98 % Respiratory 20 /min Rate 05-06-2013 07:47 Name Value Interpretat Reference Comment ion Range BP 101 mm[Hg] Diastolic BP Systolic 147 mm[Hg] Heart 73 /min Rate/Pulse O2% 95 % Respiratory 20 /min Rate Results Labs Lab Lab Date Result Refere Interp Status Commen Order Detail nces retati t Range on STREP SCREEN (RAPID) (05-06-2013 07:24) STREP NEGATIV complet SCREEN 014 E ed (RAPID) 07:24 Procedures Procedure DOS Code Location Performer Comment RADIOLOGI [address]77 [place] ASUNCION C EXAM 7 MEDICAL CHEST 2 IMAGING VIEWS ASS FRONTAL&L ATERAL DRUG TST G0477 [facility] 6 PAIN PBL BEING MANAGEMEN READ DC T OPT OBV ONLY DRUG TEST G04[address] [facility] PRESUMP;I NSTRUMENT ED CHEMISTRY ANLYZER 3D 74324 YOEL RAYGOZA ALL RENDERING 6 MEDICAL W/INTERP IMAGING & ASS POSTPROCE SS SUPERVISI ON MRI 66252 YOEL RAYGOZA ALL SPINAL 6 MEDICAL CANAL IMAGING CERVICAL ASS W/[place] [address] YOEL TREVIÑOINEKE HEAD/BRAI 6 MEDICAL CLIFF N W/O IMAGING CONTRAST ASS MATERIAL RADIOLOGI 64282 [place] NICKELS C EXAM 6 MEDICAL NANCY CHEST 2 SERV VIEWS FOUNDATIO FRONTAL&L N ATERAL BX BREAST 40821 YOEL RAYGOZA ALL W/DEVICE 6 MEDICAL 1ST IMAGING LESION ASS ULTRASOUN D GUID DIAGNOSTI G0206 YOEL RAYGOZA ALL C 6 MEDICAL MAMMOGRAP IMAGING HY INCL [place] [address] CHIPPS PICKLESIM SURG 6 KATHERINE & ER JR KEREN PATHOLOGY DUBILIER GROSS&YOSHI ROSCOPIC EXAM DIAGNOSTI G0204 JOSE GARCIA C 6 [facility] MAMMOGRAP INC INC HY INCL CAD WHEN PERF; BILAT US BREAST 45046 JOSE GARCIA UNI REAL 6 [facility] TIME INC INC WITH IMAGE COMPLETE US BREAST 79388 YOEL RAYGOZA ALL UNI REAL 6 MEDICAL [place] [address] JOSE GARCIA TRANSVAGI 6 [facility] NAL INC INC COMPUTER- 42493 JOSE GARCIA AIDED 6 [facility] DETECTION INC INC SCREENING MAMMOGRAP HY SCREENING G0202 JOSE GARCIA 6 [facility] MAMMOGRAP INC INC HY SAIGE INCL CAD WHEN PERFORMD COLOREC G0328 JOSE EDUARDO CHRISTENSEN CA SCR; 6 AMPARO TIMMONS CARLOS FOB TST IMMUNO 1-3 SIMULTANE OUS CULTURE 04082 JOSE GARCIA BACTERIAL 6 [facility] INC INC QUANTTATI VE COLONY COUNT URINE CULTURE 68278 JOSE GARCIA BCT 6 [facility] ISOL&PRSM INC INC PTV ID ISOLATE EA URINE CULTURE 14790 JOSE EDUARDO CHRISTENSEN CHLAMYDIA 6 AMPARO TIMMONS CARLOS ANY SOURCE SUSCEPTIB 10052 JOSE GARCIA LTY STDY 6 [facility] ANTIMICRB INC INC IAL MICRO/AGA R DILUTJ IADNA 24303 JOSE EDUARDO [place] NEISSERIA 6 AMPARO CHRISTENSEN MD GONORRHOE AE DIRECT PROBE TQ URINLS 12368 JOSE EDUARDO [place] SHAWNEE DIP 6 AMPARO TIMMONS CAR STICK/[place] [address] [facility] ABDOMEN & 6 MEDICAL JOSE LUIS PELVIS IMAGING W/[place] [address] JOSE GARICA INFUSION 6 [facility] THERAPY INC INC PROPHYLAX IS/[place] [address] JOSE GARCIA INFUSION 6 [facility] THERAPY/P INC INC ROPHYLAXI S /DX 1ST TO 1 HR THERAPEUT 08428 JOSE GARCIA IC 6 [facility] INJECTION INC INC IV PUSH EACH NEW [facility] G0463 JOSE GARCIA OUTPATIEN 5 [facility] T CLIN INC [place] VISIT ASSESS & [place] [address] JOSE GARCIA INFUSION 5 [facility] THERAPY/P INC INC ROPHYLAXI S /DX 1ST TO [place] [address] JOSE GARCIA INFUSION 5 [facility] THER INC INC PROPH ADDL SEQUENTIA L TO 1 HR THERAPEUT 98687 JOSE GARCIA IC 5 [facility] INJECTION INC INC IV PUSH EACH NEW DRUG IAADI 46383 JOSE GARCIA INFLUENZA 5 [facility] B VIRUS INC INC IAADI 78676 JOSE GARCIA INFFLUENZ 5 [facility] [place] [address] JOSE GARCIA HEPATITIS 5 [facility] [place] [place] [address] JOSE GARCIA STREPTOCO 5 [facility] CCUS INC INC GROUP A BLOOD 59407 JOSE GARCIA COUNT 5 [facility] COMPLETE INC INC AUTO&AUTO DIFRNTL WBC HEPATITIS 80437 JOSE GARCIA B CORE 5 [facility] ANTIBODY INC INC HBCAB TOTAL HEPATITIS 07570 JOSE Coyne SURF 5 [facility] ANTIBODY INC INC HBSAB HEPATITIS 40382 JOSE GARCIA A 5 [facility] ANTIBODY INC INC HAAB HEPATITIS 90533 JOSE GARCIA C 5 [facility] ANTIBODY INC INC CUL BACT 38726 JOSE GARCIA XCPT 5 [facility] URINE INC INC BLOOD/STO OL AEROBIC ISOL RADIOLOGI 22476 YOEL RAYGOZA ALL C EXAM 5 MEDICAL CHEST 2 IMAGING VIEWS ASS FRONTAL&L ATERAL URNLS DIP 23482 JOSE GARCIA 5 [facility] STICK/TAB INC INC LET REAGENT AUTO MICROSCOP Y COMPREHEN 50504 JOSE GARCIA SIVE 5 [facility] METABOLIC INC INC PANEL 3D 61891 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 5 MEDICAL JOSE LUIS W/INTERP IMAGING & ASS POSTPROCE SS SUPERVISI ON MRI 79202 [facility] SPINAL 5 MEDICAL JOSE LUIS CANAL IMAGING CERVICAL ASS W/O CONTRAST MATRL MRI 38039 YOEL RAYGOZA ALL SPINAL 5 MEDICAL CANAL IMAGING LUMBAR ASS W/O CONTRAST MATERIAL 3D 21806 YOEL RAYGOZA ALL RENDERING 5 MEDICAL W/INTERP IMAGING & [place] [address] JOSE GARCIA TRANSVAGI 5 [facility] NAL INC INC COLLECTIO 67904 [facility] N VENOUS 5 JOAO BLOOD PEDIATRIC VENIPUNCT S & [place] [address] [facility] MENDOSAASUNCION ABDOMEN & 5 MEDICAL JOSE LUIS PELVIS IMAGING W/O ASS CONTRAST MATERIAL SEDIMENTA 92914 JOSE GARCIA TION RATE 5 [facility] RBC INC INC NON-AUTOM ATED RADEX 84264 JOSE GARCIA HAND 5 [facility] MINIMUM [address] [place] [address] YOEL ASUNCION ABDOMEN & 4 MEDICAL JOSE LUIS PELVIS IMAGING W/O ASS CONTRAST MATERIAL 3D 67238 [facility] MENDOSAASUNCION RENDERING 4 MEDICAL JOSE LUIS IMAGING W/INTERP& ASS POSTPROC DIFF WORK STATION COLLECTIO 54173 JOSE GARCIA N VENOUS 4 [facility] BLOOD INC INC VENIPUNCT URE BASIC 85541 JOSE GARCIA METABOLIC 4 [facility] PANEL INC INC CALCIUM TOTAL BLOOD 93515 JOSE GARCIA COUNT 4 [facility] COMPLETE INC INC AUTO&AUTO DIFRNTL WBC HOSPITAL G0378 JOSE GARCIA OBSERVATI 4 [facility] ON INC INC [facility]ICE [facility] G0378 JOSE GARCIA OBSERVATI 4 [facility] ON INC INC SERVICE PER HOUR TX PROC G0238 JOSE GARCIA IMPRV 4 [facility] RESP INC INC FUNCT NOT G0237 FCE-FCE 15MIN THERAPEUT 82525 JOSE GARCIA IC 4 [facility] PROPHYLAC INC INC TIC/DX INJECTION SUBQ/[place] [address] JOSE GARCIA INFUSION 4 [facility] THERAPY/P INC INC ROPHYLAXI S /DX 1ST TO 1 HR THERAPEUT 28368 JOSE GARCIA IC 4 [facility] INJECTION INC [place] [address] CHIPPS JEREMIAH SURG 4 KATHERINE & DIONTE PATHOLOGY DUBILIER GROSS&[place] [address] [facility]IPPS JEREMIAH SURG 4 KATHERINE & DIONTE PATHOLOGY DUBILIER GROSS&YOSHI ROSCOPIC EXAM NONINVASI 69094 JOSE GARCIA VE 4 [facility] EAR/PULSE INC INC OXIMETRY OVERNIGHT MONITOR BASIC 02861 JOSE GARCIA METABOLIC 4 [facility] PANEL INC INC CALCIUM TOTAL URNLS DIP 95908 JOSE GARCIA 4 [facility] STICK/TAB INC INC LET REAGENT AUTO MICROSCOP Y URINE 47150 JOSE GARCIA 4 [facility] TEST INC INC VISUAL COLOR CMPRSN METHS POTASSIUM 37752 JOSE GARCIA SERUM 4 [facility] PLASMA/WH INC INC OLE BLOOD BLOOD 54154 JOSE GARCIA COUNT 4 [facility] HEMATOCRI INC INC T BLOOD 77347 JOSE GARCIA COUNT 4 [facility] HEMOGLOBI INC INC N COLLECTIO 46187 JOSE GARCIA N VENOUS 4 [facility] BLOOD INC INC VENIPUNCT URE ANESTHESI 92115 [facility] FABIO A 4 ANESTH CROW INTRAPERI OF THE TONEAL BLUE LOWER ABD W/LAPS NOS LAPS 39239 JOSE GARCIA W/VAG 4 [facility] HYSTERECT INC INC 250 GM/&RMVL TUBE&/OVA KIRK INJECTION J2405 JOSE GARCIA 4 [facility] ONDANSETR INC INC ON HCL PER 1 MG COMPREHEN 09895 [facility] SIVE 3 Y Y METABOLIC [facility] [place] [address] [facility] TRANSVAGI 3 Y Y NAL [facility] BLOOD 87630 [facility] COUNT 3 Y Y COMPLETE [facility] AUTOMATED CUL BACT [address] [facility] XCPT 3 N N URINE [facility] BLOOD/STO HOSPITA HOSPITA OL AEROBIC ISOL IAADIADOO [address] [facility] 3 N N STREPTOCO [facility] CCUS HOSPITA HOSPITA GROUP A RADEX HIP [address] [facility] 3 N N UNILATERA [facility] COMMUNITY L HOSPITA HOSPITA COMPLETE MINIMUM 2 VIEWS NONCOVERE A9[address] [facility] D ITEM OR 2 N N SERVICE [facility] COMMUNITY HOSPITA HOSPITA RADEX 48701 [place] MAT HAND 2 RADIOLOGY MINIMUM 3 VIEWS URNLS DIP [address] [facility] 1 N N STICK/TAB [facility] LET HOSPITA HOSPITA REAGENT AUTO MICROSCOP Y URINE [address] [facility] 1 N N TEST [facility] VISUAL HOSPITA [place] [address] [facility] [place] POLLO ABDOMEN & 1 RADIOLOGY DIONTE PELVIS W/O CONTRAST MATERIAL URNLS DIP 90672 [facility] 1 STICK/TAB PEDIATRIC PEDIATRIC LET RGNT S & INTER S & INTER NON-[place] W/[place] [address] [facility] FERNANDEZ INFUSION 1 JOAO HYDRATION PEDIATRIC INITIAL S & INTER 31 MIN-1 HOUR [address]ERAPE[address] [facility] IC 1 N N PROPHYLAC [facility] TIC/DX HOSPITA HOSPITA INJECTION SUBQ/[place] [address] [facility] TRACT UPR 1 N N W/SM INT COMMUNITY COMMUNITY W/MULT HOSPITA [place] [address] [place] MAT UPR W/WO 1 RADIOLOGY GLUCOSE W/SM INTEST FOLLW-THR U ADMINISTR G0008 [facility] F[facility] ATION OF 1 JOAO INFLUENZA PEDIATRIC VIRUS S & INTER VACCINE INFLUENZA Q2038 [facility] VACC 1 JOAO SPLIT PEDIATRIC VIRUS 3 S & INTER YRS & > IM FLUZONE ECHO [address] [facility] TTHRC R-T 1 N N 2D [facility] W/WOM-MOD HOSPITA HOSPITA E COMPL SPEC&COLR D ECG 22990 ELVER FERNANDEZ ROUTINE 1 JOAO ECG PEDIATRIC W/LEAST S & INTER 12 LDS W/I&R COLLECTIO 15178 ELVER THOMSONIGHT N VENOUS 1 JOAO BLOOD PEDIATRIC VENIPUNCT S & INTER URE RADIOLOGI 16525 LEX MONTEMAYOR C EXAM 1 EMERGENCY RENTERIA CHEST 2 SERVICES VIEWS FRONTAL&L ATERAL RADEX [address] [facility] HAND 0 N N MINIMUM 3 [facility] COMMUNITY VIEWS HOSPITA HOSPITA INJECTION J1885 [facility]TIEGRASS FERNANDEZ 0 JOAO KETOROLAC PEDIATRIC S & INTER TROMETHAM INE PER 15 MG INJECTION J2550 BETTIEGRASS FERNANDEZ 0 JOAO PROMETHAZ PEDIATRIC INE HCL S & INTER UP TO [address] PELVIS 07188 [facility] [place] QUINTANILLA- 0 RADIOLOGY VILLAV, E W/[place] [address] [facility] [place] QUINTANILL[place]- ABDOMEN 0 RADIOLOGY VILLAV, E W/CONTRAS A T MATERIAL ANES 23957 [place] HEIDE, TRANSURET 0 ANESTHESI TACHO S HRAL A GROUP W/URETHRO PSC CYSTOSCOP Y NOS URNLS DIP 99997 ELVER FERNANDEZ, 0 EN A STICK/TAB PEDIATRIC LET RGNT S & NON-AUTO INTERNAL W/O MEDICINE MICRSCP PLLC PH BODY 79372 [facility] SONIA FLUID NOT 0 N JR, OBSTETRIC ANNIE ELSEWHERE S AND GYNECOLOG SPECIFIED Y SMR PRIM 00993 [facility] SONIA SRC WET 0 N JR, MOUNT OBSTETRIC ANNIE NFCT AGT S AND GYNECOLOG Y MRI [address] [facility] SPINAL 0 N N CANAL [facility] W/O CONTRAST MATERIAL OPHTH 36793 ELIESER MON, MEDICAL 0 JITANDER JITANDER XM&EVAL S S COMPRE NEW PT 1/> VST BLOOD 77910 LAB MEGAN LAB MEGAN COUNT 9 AMERIC AMERIC COMPLETE HOLDING HOLDING AUTO&AUTO DIFRNTL WBC SEDIMENTA 19122 [facility] MEGAN TION RATE 9 AMERIC AMERIC RBC HOLDING HOLDING AUTOMATED C-REACTIV 81811 [facility] MEGAN E PROTEIN 9 [employer]IC [employer] HOLDING RHEUMATOI 16933 [facility] LAB MEGAN D FACTOR 9 AMERIC AMERIC QUANTITAT HOLDING HOLDING SHAUNNA COMPREHEN 52739 LAB MEGAN LAB MEGAN SIVE 9 AMERIC [employer] METABOLIC HOLDING HOLDING PANEL THER 13275 YUKO HUNTLEY PROPH/DX 9 , NANDO COLLIER NJX IV W W PUSH SINGLE/1S T SBST/DRUG DEEP D9220 YUKO HUNTLEY SEDATION/ 9 , NANDO COLLIER GENERAL W W ANESTHESI A-1ST 30 MINUTES RADEX 19217 [facility] [place] LAUREL, HAND 9 RADIOLOGY MARCIE G MINIMUM 3 VIEWS ORTHOPANT 52957 YUKO HUNTLEY OGRAM 9 , NANDO COLLIER W W COLLECTIO [address] [facility] N VENOUS 9 N N BLOOD [facility] GONADOTRO [address] [facility] PIN 9 N N [facility] QUALITATI VE BLOOD [address] [facility] COUNT 9 N N COMPLETE [facility] AUTO&[facility] DIFRNTL WBC LEVEL III 91957 PATHOLOGY PATHOLOGY SURG 9 & & PATHOLOGY CYTOLOGY CYTOLOGY LAB LAB GROSS&YOSHI ROSCOPIC EXAM THROMBOPL [address] [facility] ASTIN 9 N N TIME [facility] PLASMA/WH OLE BLOOD PROTHROMB [address] [facility] IN TIME 9 N N [facility] GONADOTRO [address] [facility] PIN [address] [facility] QUALITATI VE BLOOD [address] [facility] COUNT 9 N N COMPLETE [facility] AUTO&AUTO [facility] DIFRNTL WBC COMPREHEN 0[address] [facility] SIVE 9 N N [facility] BILIRUBIN [address] [facility] DIRECT 9 N N [facility] COLLECTIO [address] [facility] N VENOUS 9 N N BLOOD [facility] URE HEPATBL [address] [facility] DUX SYS 9 N N IMG [facility] INJE[facility] J280[address] [facility] [address] [place] [address] [facility] ABDOMINAL 9 N N [facility] W/[place] [address] [facility] ABDOMEN 9 N N W/[facility] MATERIAL [facility]ELVIS [address] [facility] 9 N N W/[facility] MATERIAL COMPREHEN [address] [facility] SIVE 9 N N METABOLIC [facility] [place] [address] [facility] LIPASE 9 N N [facility] URNLS DIP [address] [facility] 9 N N STICK/TAB [facility] HOSPITAL NON-AUTO W/O MICRSCP GONADOTRO [address] [facility] PIN [address] [facility] HOSPITAL QUALITATI VE BLOOD [address] [facility] COUNT 9 N N COMPLETE [facility] AUTO&AUTO [facility] DIFRNTL WBC THER 28028 [place] [facility] PROPH/DX 9 N N NJX IV [facility] SINGLE/1S T SBST/DRUG THERAPEUT [address] [facility] IC 9 N N INJECTION [facility] EACH NEW DRUG UNCLASSIF J3490 [facility] IED DRUGS 9 N N [facility] INJECTION J24[address] [facility] 9 N [facility] PER [address] [facility] OBSERVATI 9 N N [facility]OSPITAL PER HOUR BLOOD [address] [facility] COUNT 9 N N COMPLETE [facility] AUTO&AUTO [facility] DIFRNTL WBC BLOOD [address] [facility] COUNT 9 N N COMPLETE [facility] AUTO&AUTO [facility] DIFRNTL WBC CUL BACT [address] [facility] AEROBIC 9 N N [facility] DEFINITIV E EA ISOL CULTURE [address] [facility] BACTERIAL 9 N N [facility] VE COLONY COUNT URINE SUSCEPTIB [address] [facility] LTY STDY 9 N N ANTIMICRB [facility]PITAL MICRO/AGA R DILUTJ INJECTION J2[address] [facility] 9 N N MEPERIDIN [facility] E [facility] PER HOSPITAL HOSPITAL 100 [address] [facility] G[address] [facility] OBSERVATI 9 N N [facility] HOSPITAL PER HOUR URNLS DIP [address] [facility] 9 N N STICK/TAB [facility] REAGENT AUTO MICROSCOP Y INJECTION J25[address] [facility] 9 N N PROMETHAZ [facility] HOSPITAL UP TO [address] [facility] INCISION 8 N N W/DRAINAG [facility] SKIN&SUBC UTANEOUS TISSUE Encounters Encounter Start End Date Code Location Performer Type Date [facility]PITAL [facility] 6 6 HOSPITAL OFFICE 62871 [facility] OUTPATIEN 6 6 PAIN T NEW 45 MANAGEMEN MINUTES T HOSPITAL JOSE - 6 6 [facility] HOSPITAL JOSE - 6 6 [facility]PATI[facility] T EMERGENCY 93517 JOSE 6 6 [facility] T VISIT LIMITED/M INOR PROB EMERGENCY 78934 [place] AMES 6 6 MEDICAL [place] DEPARTMEN SERV T VISIT FOUNDATIO MODERATE N SEVERITY HOSPITAL UNIVERSIT - 6 6 Y OUTPATI HOSPITAL T HOSPITAL JOSE - 6 6 [facility] OUTPATIEN [facility] T OFFICE 41289 JOSE EDUARDO CHRISTENSEN OUTPATIEN 6 6 AMPARO GONZALEZ T VISIT 25 MINUTES OFFICE 24367 AGUIRRE PAD AGUIRRE PAD OUTPATIEN 6 6 T NEW 30 MINUTES HOSPITAL JOSE - 6 6 [facility] OUTPATIEN [facility] T HOSPITAL JOSE - OTHER 6 6 [facility] EMERGENCY 26959 JOSE 6 6 [facility] T VISIT HIGH/URGE NT SEVERITY HOSPITAL JOSE - 6 6 [facility] OUTPATIEN [facility] T EMERGENCY 54103 PAIGE MALDONADO DEPT 6 6 PHYSICIAN YOSHI VISIT S, PLLC HIGH SEVERITY& THREAT FUNCJ OFFICE 14516 [place] SERA PHI OUTPATIEN 5 5 MEDICAL T NEW 30 SERV MINUTES FOUNDATIO N OFFICE 80373 [facility] JACKELYN OUTPATIEN 5 5 PHYSICIAN YOSHI T VISIT S GROUP 10 MINUTES OFFICE 05409 KARINA CRUZ OUTPATIEN 5 5 MD PRETTY, T VISIT PSC 10 MINUTES HOSPITAL JOSE - 5 5 [facility] OUTPATIEN INC T EMERGENCY 56134 JOSE 5 5 [facility] DEPARTMEN INC T VISIT HIGH/URGE NT SEVERITY HOSPITAL JOSE - 5 5 [facility] OUTPATIEN [facility] EMERGENCY 26133 PAIGE MALDONADO DEPT 5 5 PHYSICIAN YOSHI VISIT [facility] HIGH SEVERITY& THREAT [facility] OFFICE 89776 [facility] OUT[facility] 5 5 MD PRETTY, T NEW 45 PSC MINUTES HOSPITAL JOSE - 5 5 [facility] OUTPATIEN [facility] HOSPITAL JOSE - 5 5 [facility] OUTPATIEN INC HOSPITAL JOSE - 5 5 [facility] OUTPATIEN [facility] OFFICE 07443 ELVER FERNANDEZ OUTPATIEN 5 5 JOAO T VISIT PEDIATRIC 15 S & INTER MINUTES EMERGENCY 97755 PAIGE MIRANDA 5 5 [facility] T VISIT HIGH/URGE NT SEVERITY HOSPITAL JOSE - 5 5 [facility] OUTPATIEN [facility] EMERGENCY 91835 [facility] T VISIT MODERATE SEVERITY HOSPITAL JOSE - 5 5 [facility] OUTPATIEN [facility] EMERGENCY 30189 [facility] T [facility]ISIT LOW/MODER SEVERITY HOSPITAL JOSE - 5 5 [place] OUTPATIEN [facility] EMERGENCY 81063 JOSE HOUGHUYOMADE 5 5 [facility] T VISIT P MODERATE SEVERITY EMERGENCY 13467 JOSE 5 5 [facility] T VISIT LOW/MODER SEVERITY OFFICE 53965 ELVER FERNANDEZ OUTPATIEN 5 5 JOAO T VISIT PEDIATRIC 15 S & INTER MINUTES OFFICE 70695 ELVER OROPEZA OUTPATIEN 5 5 SILVINA T VISIT PEDIATRIC 15 S & INTER MINUTES EMERGENCY 20227 JOSE 5 5 MEM HOSP DEPARTMEN INC T VISIT LOW/MODER SEVERITY HOSPITAL JOSE - 5 5 [facility] OUTPATIEN [facility] T OFFICE 04108 ELVER FERNANDEZ OUTPATIEN 4 4 JOAO T VISIT PEDIATRIC 15 S & INTER MINUTES EMERGENCY 00029 [facility] DEPT 4 4 JEFFRY YOSHI VISIT EMERGENCY HIGH PHYS SEVERITY& THREAT FUNCJ EMERGENCY 02001 [facility] DEPT 4 4 JEFFRY YOSHI VISIT EMERGENCY HIGH PHYS SEVERITY& THREAT [facility] HOSPITAL JOSE - 4 4 [facility] OUTPATIEN INC T EMERGENCY 41254 [facility] 4 4 JEFFRY YOSHI DEPARTMEN EMERGENCY T VISIT PHYS HIGH/URGE NT SEVERITY Emergency FRANCE Maldonado MD (ER) 4 07:32 4 08:01 [facility] EMERGENCY 63715 LEXERIK MALDONADO 4 4 EMERGENCY YOSHI DEPARTMEN SERVICES T VISIT HIGH/URGE NT SEVERITY EMERGENCY 73478 LEX STEIN 3 3 EMERGENCY EDWARDO DEPARTMEN SERVICES T VISIT HIGH/URGE NT SEVERITY HOSPITAL UNIVERSIT - 3 3 Y [facility] 58668 [facility] 3 3 N [facility] COMMUNITY T VISIT HOSPUNC HEALTH MODERATE SEVERITY HOSPITAL [facility] HOSPITA OFFICE 05755 REBECCA FERNANDEZ OUTPATIEN 3 3 JOAO JOAO T VISIT 15 MINUTES OFFICE 69366 [facility] 2 N TERRI N TERRI T NEW 30 MINUTES HOSPITAL [facility] 87550 [facility] 2 2 N DEPARTMEN COMMUNITY T VISIT HOSPITA HIGH/URGE NT SEVERITY EMERGENCY 04862 [place] JOCELYN 2 2 MEDICAL I ALI DEPARTMEN SERV T VISIT FOUNDATIO MODERATE SEVERITY EMERGENCY 47485 RECHTIN RECHTIN 2 2 PIPELINE SUPERINTENDENT DIVISION PIPELINE SUPERINTENDENT DIVISION DEPARTMEN T VISIT MODERATE SEVERITY OFFICE 33054 FERNANDEZ FERNANDEZ OUTPATIEN 1 1 JOAO JOAO T VISIT 15 MINUTES HOSPITAL [facility] - 1 N OUTPATIEN COMMUNITY T HOSPITA EMERGENCY 26662 [facility] 1 1 N [facility] COMMUNITY T VISIT HOSPITA HIGH/URGE NT SEVERITY EMERGENCY 20928 LEX CELLAROSI DEPT 1 1 EMERGENCY - YORBA VISIT SERVICES PAT HIGH SEVERITY& [facility] - 1 N OUTPATI COMMUNITY T HOSPITA OFFICE 85116 [facility] FERNANDEZ OUTPATIEN 1 1 OJAO T VISIT PEDIATRIC 15 S & INTER MINUTES OFFICE 09586 [facility] FERNANDEZ OUTPATIEN 1 1 JOAO T VISIT PEDIATRIC 15 S & INTER MINUTES OFFICE 04468 [place] ERNST OUTPATIEN 1 1 DERMATOLO CON T VISIT GY AND 10 SKIN CARE MINUTES HOSPITAL [facility] - 1 N OUTPATIEN COMMUNITY T HOSPITA OFFICE 23830 [facility] FERNANDEZ OUTPATIEN 1 1 JOAO T VISIT PEDIATRIC 25 S & INTER MINUTES EMERGENCY 76578 LEX MONTEMAYOR 1 1 [facility] T VISIT HIGH/URGE NT SEVERITY OFFICE 80428 [place] [facility]N[place] OUTPATIEN 1 1 DERMATOLO CON T NEW 20 GY AND MINUTES SKIN CARE OFFICE 11563 [facility] FERNANDEZ OUTPATIEN 1 1 JOAO T VISIT PEDIATRIC 15 S & INTER MINUTES OFFICE 78195 [facility] FERNANDEZ OUTPATIEN 1 1 JOAO T VISIT PEDIATRIC 15 S & INTER MINUTES [facility]OSPITAL [facility] - 0 0 N OUTPATIEN COMMUNITY T HOSPITA OFFICE 81569 [facility] FERNAN[facility]Z OUTPATIEN 0 0 JOAO T VISIT PEDIATRIC 15 S & INTER MINUTES OFFICE 17366 [facility] FERNANDEZ OUTPATIEN 0 0 JOAO T VISIT PEDIATRIC 15 S & INTER MINUTES OFFICE 76458 [facility] FERNANDEZ OUTPATIEN 0 0 JOAO T VISIT PEDIATRIC 15 S & INTER MINUTES EMERGENCY 23174 [facility] WORKS EDWARDO 0 0 JEFFRY DEPARTMEN EMERGENCY T VISIT SERV HIGH/URGE NT SEVERITY [facility]OSP[facility] - 0 0 HOSPITAL OUTPATIEN T EMERGENCY 45360 [facility] LUCIUS W 0 0 JEFFRY DEPARTMEN EMERGENCY T VISIT PHYS MODERATE SEVERITY OFFICE 25710 BLUEWING FERNANDEZ OUTPATIEN 0 0 JOAO T VISIT PEDIATRIC 25 S & INTER MINUTES OFFICE 74345 [facility] FERNANDEZ OUTPATIEN 0 0 JOAO T VISIT PEDIATRIC 15 S & INTER MINUTES OFFICE 50615 [facility] FERNANDEZ OUTPATIEN 0 0 JOAO T VISIT PEDIATRIC 15 S & INTER MINUTES EMERGENCY 73005 LEX STEIN, AVELINOT 0 0 EMERGENCY EDMUNDO W VISIT SERVICES HIGH SEVERITY& ASSOCIATE THREAT S FUNCJ EMERGENCY 15453 [facility] PEARCE, 0 0 JEFFRY SHERRY Monte DEPARTMEN EMERGENCY T VISIT PHYS INC HIGH/URGE NT SEVERITY EMERGENCY 81045 L[place] HOANG, 0 0 EMERGENCY BIPIN DEPARTMEN SERVICES T VISIT HIGH/URGE ASSOCIATE NT S SEVERITY OFFICE 59128 AMENA BECKWITH, OUTPATIEN 0 0 NANDO Peguero VISIT 25 MINUTES OFFICE 82891 AMENA BECKWITH OUTPATIEN 0 0 NANDO Peguero NEW 30 MINUTES OFFICE 80214 ELVER FERNANDEZ, OUTPATIEN 0 0 EN A T VISIT PEDIATRIC 15 S & MINUTES INTERNAL MEDICINE [facility] OFFICE 10956 VIK QUEZADA II OUTPATIEN 0 0 [facility] SLEEP PRAVEEN T VISIT AND REHA 10 MINUTES OFFICE 54208 VIK QUEZADA II, OUTPATIEN 0 0 [facility] SLEEP JUSTIN C T VISIT AND 10 REHAB MINUTES [facility] OFFICE 66828 ODALYS ARENASN OUTPATIEN 0 0 N JR, T VISIT OBSTETRIC ANNIE 10 S AND MINUTES GYNECOLOG Y OFFICE 67959 ODALYS LUNDYELLEN OUTPATIEN 0 0 N JR, T NEW 30 OBSTETRIC ANNIE MINUTES S AND GYNECOLOG Y OFFICE 27431 ELVER FERNANDEZ, OUTPATIEN 0 0 EN A T VISIT PEDIATRIC 15 S & MINUTES INTERNAL MEDICINE [facility] - 0 0 N [facility] OFFICE 41905 ELVER FERNANDEZ, OUTPATIEN 0 0 EN A T VISIT PEDIATRIC 15 S & MINUTES INTERNAL MEDICINE [facility] EMERGENCY 59059 LEX GONZALEZLS, 9 9 EMERGENCY [facility] SERVICES T VISIT MODERATE ASSOCIATE SEVERITY S OFFICE 53961 YUKO HUNTLEY OUTPATIEN 9 9 , NANDO COLLIER 10 W W [facility] - 9 9 N [facility] - 9 9 N [facility] - 9 9 N [facility] - 9 9 N [facility] - 9 9 N [facility] EMERGENCY 38021 [facility] 9 9 N [facility] MODERATE [facility]VERITY HOSPITAL [facility] - 9 9 N [facility] - 9 9 N [facility] - 8 8 N [facility] EMERGENCY 86978 [facility] 8 8 N [facility] LIMITED/M INOR PROB EMERGENCY 76311 [facility] 8 8 N [facility] LOW/MODER [facility]VERITY HOSPITAL [facility] - 8 8 N [facility]
--- OUTSIDE RECORDS SUMMARY | 2017-01-31 17:44 | External Medical Summary Rpt | CCD ---
Author Author , [facility] Organization [facility] Address Unknown Phone Care Team Providers Care University Registrar Name Role Phone KARINA OLSEN MD, PSC, Unavailable Unavailable KARINA OLSEN MD, PSC HERMAN CORONADO, HERMAN Unavailable Unavailable [facility] Unavailable Unavailable & INTER, [facility] INTER RAYGOZA ALL, RAYGOZA ALL Unavailable Unavailable ERNST CON, Unavailable Unavailable ERNST CON CELLAROSI - YORBA Unavailable Unavailable PAT, CELLAROSI - YORBA PAT CHIPPS KATHERINE & Unavailable Unavailable DUBILIER, CHIPPS KATHERINE & DUBILIER [facility], Unavailable Unavailable [facility] Unavailable Unavailable THE BLUE, [facility] ASUNCION, ASUNCION Unavailable Unavailable ASUNCION JOSE LUIS, Unavailable Unavailable ASUNCION JOSE LUIS DUDEE, JITANDER S, Unavailable Unavailable DUDEE, JITANDER S DUOSVALDO NANCY DUFF ANNCY Unavailable Unavailable SARITA CHAIREZ Unavailable Unavailable SARITA DE LOS SANTOS Unavailable Unavailable EDMUNDO HAIRSTON, Unavailable Unavailable EDMUNDO STEIN JR ELZ, Unavailable Unavailable JR ANNAMARIA MIRANDA GAINEY Unavailable Unavailable YOSHI [facility] Unavailable Unavailable HOSPITA, [facility] Unavailable Unavailable [facility] JOSE EDUARDO CHRISTENSEN MD, Unavailable Unavailable Daniel BLANCO MD, Unavailable Unavailable Daniel DUBOIS RHONDA G, Unavailable Unavailable MARCIE BARRAGAN CARLOS, HARPEL Unavailable Unavailable CAR[facility] Unavailable Unavailable INC, [facility] Unavailable Unavailable HOSPITAL P, [facility] P NANDO HUNTLEY, Unavailable Unavailable NANDO HUNTLEY [facility], Unavailable Unavailable [facility], Unavailable Unavailable [facility]UYOM[facility] ROT, Unavailable Unavailable [facility] PILAR II PRAVEEN, PILAR Unavailable Unavailable II PRAVEEN PILAR II, JUSTIN C, Unavailable Unavailable PILAR II, JUSTIN C JEREMIAH DIONTE, JEREMIAH Unavailable Unavailable DIONTE JOHNNA SILVINA, JOHNNA Unavailable Unavailable SILVINA [facility] Unavailable Unavailable [facility], [facility] FERNANDEZ JOAO, FERNANDEZ Unavailable [...] Unavailable LORRAINE HAM, LORRAINE HAM Unavailable Unavailable [facility] Unavailable Unavailable SERVICES, [facility] SHAWNEE CAR, Unavailable Unavailable [facility] CAR NICKELS NANCY, NICKELS Unavailable Unavailable NANCY [facility], Unavailable Unavailable PLL[facility], [facility] Unavailable Unavailable LAB, [facility] PICKLESIMER JR KEREN, Unavailable Unavailable PICKLESIMER JR KEREN NATALYA, BIPIN, NATALYA, Unavailable Unavailable BIPIN AGUIRRE PAD, AGUIRRE PAD Unavailable Unavailable AGUIRRE PAD, AGUIRRE PAD Unavailable Unavailable RECHTIN FELT STRIP FINISHER, RECHTIN Unavailable Unavailable FELT STRIP FINISHER RECHTIN FELT STRIP FINISHER, RECHTIN Unavailable Unavailable FELT STRIP FINISHER KOEHLER TERRI, Unavailable Unavailable KOEHLER TERRI KOEHLER [...] [facility] FABIO CROW, Unavailable Unavailable [facility], Unavailable Unavailable [facility] ABAD DIONTE, Unavailable Unavailable ABAD DIONTE SERA PHI, SERA PHI Unavailable Unavailable AMENA NANDO C, Unavailable Unavailable AMENA NANDO Farnaz [facility], Unavailable Unavailable [facility] Unavailable Unavailable [id number], [facility] SHERRY PEARCE, Unavailable Unavailable SHERRY PEARCE LUCIUS W, LUCIUS W Unavailable Unavailable WORKS EDWARDO, WORKS EDWARDO Unavailable Unavailable MARYA MAT, MARYA MAT Unavailable Unavailable Purpose Continuity of Care Document - 2007 through 2016 Problems Code Diagnosis DOS Provider Status Q676 PECTUS 07-06-2016 [facility] R05 COUGH 07-06-2016 [facility] R0989 OT SPEC SX 07-06-2016 [place] & SIGNS MEDICAL INVLV THE IMAGING ASS CIRC & RESP SYS R58251 SPONDYLOSIS 03-05-2016 [facility] W/O PAIN MYELOPATH/R MANAGEMENT ADICULOPATH Y LUMB RGN M5413 RADICULOPAT 03-05-2016 [facility] CERVICOTHOR MANAGEMENT ACIC REGION M5417 RADICULOPAT 03-05-2016 [facility] PAIN LUMBOSACRAL MANAGEMENT REGION Z5181 ENCOUNTER 03-05-2016 [facility] THERAPEUTIC DRUG LEVEL MONITORING O44565 HALFWAY 03-05-2016 [facility] CURRENT USE [facility] ANALGESIC Y81832 OTHER LONG 03-05-2016 [facility] PAIN CURRENT MANAGEMENT DRUG THERAPY M4802 SPINAL 01-23-2016 [place] STENOSIS [facility]ICAL CERVICAL IMAGING ASS REGION M5020 OTH 01-23-2016 [facility] CERVICAL [facility] DISC INC DISPLACEMEN T UNS CERV REGION M5021 OT CERV 01-23-2016 [place] DISC MEDICAL DISPLACMENT IMAGING ASS HIGH CERVICAL REG Z58586 OTHER 01-23-2016 [place] CERVICAL MEDICAL DISC IMAGING ASS DEGENERATIO N AT C6-C7 LEVEL M542 CERVICALGIA 01-23-2016 [facility] R410 DISORIENTAT 10-11-2015 [place] ION MEDICAL UNSPECIFIED IMAGING ASS L551 SUNBURN OF 10-05-2015 [facility] DEGREE INC Z720 TOBACCO USE 10-05-2015 [facility] N644 MASTODYNIA 07-24-2015 [facility] N6011 DIFFUSE 07-23-2015 [facility]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 N63 UNSPECIFIED 07-23-2015 [place]MP IN MEDICAL BREAST IMAGING ASS R928 OTH ABNORM 07-23-2015 [place] & MEDICAL INCONCLUSIV IMAGING ASS E FIND ON DX IMAG BREAST N3010 INTERSTITIA 06-25-2015 JO[facility] EDUARDO Lyon 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 N6019 DIFFUSE 06-25-2015 JO[facility] EDUARDO Lyon 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 R102 PELVIC AND 06-07-2015 [place] PERINEAL [facility]ICAL PAIN IMAGING ASS R1031 RIGHT LOWER 06-07-2015 [facility]ANT [facility] PAIN INC Z1231 ENCOUNTER 06-07-2015 [place] SCREENING MEDICAL MAMMO MALIG IMAGING ASS NEOPLASM BREAST N390 URINARY 05-24-2015 [facility] TRACT [facility] INFECTION INC SITE NOT SPECIFIED N736 FEMALE 05-24-2015 [facility] EDUARDO Lyon PELVIC AMPARO TIMMONS PERITONEAL ADHESIONS POSTINFECTI VE R63835 ENCOUNTER 05-24-2015 JO[facility] EDUARDO Lyon 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 EXAM AMPARO TIMMONS GENERAL RTN W/O ABNORMAL FIND Z1212 ENCOUNTER 05-24-2015 JO[facility] EDUARDO Lyon SCREENING AMPARO TIMMONS MALIGNANT NEOPLASM RECTUM A084 VIRAL 04-24-2015 [facility] INTESTINAL [facility] INFECTION INC UNSPECIFIED H12364 UNSPECIFIED 04-24-2015 [facility] ASTHMA [facility] UNCOMPLICAT INC ED K529 NONINFECTIV 04-24-2015 [facility] ITIS & COLITIS UNS R109 UNSPECIFIED 04-24-2015 [place] ABDOMINAL [facility]ICAL PAIN IMAGING ASS R112 NAUSEA WITH 04-24-2015 [place] VOMITING MEDICAL UNSPECIFIED IMAGING ASS R197 DIARRHEA 04-24-2015 [place] UNSPECIFIED MEDICAL IMAGING ASS D91778 PAIN IN 03-08-2015 [facility] MEDICAL RIGHT SERV SHOULDER FOUNDATION M5032 OTH CERV 03-08-2015 [facility] MEDICAL DISC SERV DEGENERATIO FOUNDATION N MID-CERVICA L REGION V23941 PAIN IN 03-08-2015 [facility] MEDICAL RIGHT ARM SERV FOUNDATION H6690 OTITIS 03-07-2015 [facility]YS[facility]ANS UNSPECIFIED GROUP UNSPECIFIED EAR [...] , PSC RADICULITIS NOS 7210 CERVICAL 12-19-2014 [place] SPONDYLOSIS MEDICAL WITHOUT IMAGING ASS MYELOPATHY 7224 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 7231 CERVICALGIA 12-19-2014 [facility] 7213 LUMBOSACRAL 11-09-2014 [place] MEDICAL SPONDYLOSIS IMAGING ASS WITHOUT MYELOPATHY 7242 LUMBAGO 11-09-2014 [facility] 7820 DISTURBANCE 11-09-2014 [place] OF SKIN MEDICAL SENSATION IMAGING ASS 8472 LUMBAR 11-09-2014 [facility] SPRAIN AND [facility] STRAIN INC 74099 ABDOMINAL 10-05-2014 [place] PAIN RIGHT MEDICAL LOWER IMAGING ASS QUADRANT 2768 HYPOPOTASSE 09-21-2014 [facility]Y [facility] & INTER 27962 OTH 09-21-2014 [facility] EXTRAPYRAMI [facility]EDIATRICS HERIBERTO & INTER DZ&ABNORM MOVMNT DISORDER 81867 ABDOMINAL 09-21-2014 [facility] PAIN, PEDIATRICS UNSPECIFIED & INTER SITE 5920 CALCULUS OF 09-16-2014 [place] KIDNEY [facility] 6202 OTHER AND 09-16-2014 [facility] UNSPECIFIED PHYSICIANS, OVARIAN PLLC CYST V642 SURG/OTH 07-29-2014 [facility] PROC NOT [facility] CARRIED OUT INC BECAUSE PTS DECN 7295 PAIN IN 07-17-2014 [place] SOFT MEDICAL TISSUES OF IMAGING ASS LIMB 22197 SWELLING OF 07-17-2014 [facility] LIMB [facility] INC 8439 SPRAIN&STRA 07-17-2014 [facility] IN OF [facility] UNSPECIFIED INC SITE OF HIP&THIGH 9594 INJURY 07-17-2014 [place] OTHER AND MEDICAL UNSPECIFIED IMAGING ASS HAND EXCEPT FINGER V5869 LONG-TERM 07-17-2014 [facility] (CURRENT) [facility] USE OF INC OTHER MEDICATIONS 5751 OTHER 06-25-2014 [facility] CHOLECYSTIT [facility] IS INC 5758 OTHER 06-25-2014 JO[facility] SPECIFIED [facility] P GALLBLADDER 41192 ABDOMINAL 06-25-2014 [facility] PAIN, LEFT [facility] P QUADRANT 486 PNEUMONIA, 06-05-2014 [facility] UNSPECIFIED & INTER 4619 ACUTE 06-03-2014 [facility] SINUSITIS, PEDIATRICS UNSPECIFIED & INTER 60202 UNSPECIFIED 05-05-2014 [facility] AND [facility] SUB[facility] HOSP[facility] P IRIDOCYCLIT IS V146 PERSONAL 05-05-2014 JO[facility] HISTORY OF [facility] ALLERGY TO [facility] P ANALGESIC AGENT V148 PERSONAL 05-05-2014 [facility] HISTORY [facility] ALLERGY [facility] P SPEC MEDICINAL AGTS 98587 OTHER ACUTE 09-21-2013 [facility] N EMERGENCY POSTOPERATI PHYS VE PAIN 83589 UNSPECIFIED 09-21-2013 [facility] EMERGENCY CONSTIPATIO PHYS N 98354 ABDOMINAL 09-21-2013 [facility] [place] PAIN OTHER MEDICAL SPECIFIED IMAGING ASS SITE V8801 ACQUIRED 09-21-2013 [place] ABSENCE OF MEDICAL BOTH CERVIX IMAGING ASS AND UTERUS 2189 LEIOMYOMA 09-19-2013 [facility] OF UTERUS, KATHERINE & UNSPECIFIED DUBILIER 6170 ENDOMETRIOS 09-19-2013 [facility] IS OF KATHERINE & UTERUS DUBILIER 6250 DYSPAREUNIA 09-19-2013 [facility] ANESTH OF THE Redeem&Get 6253 DYSMENORRHE 09-19-2013 [facility] A ANESTH OF THE BLUE 6259 UNSPEC 09-19-2013 [facility] SYMPTOM [facility] ASSOC INC W/FEMALE GENITAL ORGANS 6264 IRREGULAR 09-19-2013 [facility] MENSTRUAL [facility] CYCLE INC 8409 SPRAIN&STRA 08-11-2013 [facility] IN UNSPEC N EMERGENCY SITE PHYS SHOULDER&UP PER ARM E8888 OTHER FALL 08-11-2013 [facility] N EMERGENCY PHYS 18772 OTHER 01-13-2013 [facility] PAIN 27113 UNSPECIFIED 01-11-2013 [place] [facility]AL [facility] IN CCE & UNS SITE 53054 UNSPECIFIED 01-11-2013 [facility] PERFORATION SERVICES OF TYMPANIC MEMBRANE 08281 UNSPECIFIED 01-11-2013 [facility] 462 ACUTE 01-11-2013 [facility] PHARYNGITIS [facility]Y [facility] 7841 THROAT PAIN 01-11-2013 [facility] 36106 NAUSEA 01-11-2013 [facility]OS[facility] 85086 PAIN IN 05-07-2012 [facility] PELVIC HOSPITA REGION AND THIGH 7265 ENTHESOPATH 05-03-2012 REBECCA Hamilton OF HIP REGION 42460 UNSPECIFIED 02-24-2012 [facility] TEAR FILM TERRI INSUFFICIEN CY 9181 SUPERFICIAL 02-24-2012 KOE[facility] INJURY OF TERRI CORNEA 19421 MIGRAINE 09-26-2011 RE[facility] SHEPHERD UNSP W/O INTRACT W/O STATUS MIGRAINOSUS 7062 SEBACEOUS 09-26-2011 RE[facility] SHEPHERD CYST 74820 INSOMNIA 09-26-2011 RE[facility] SHEPHERD UNSPECIFIED 8406 SUPRASPINAT 09-26-2011 REBECCA SHEPHERD US SPRAIN AND STRAIN 92587 CONTUSION 09-18-2011 SARITA BANERJEEU OF HAND E918 CAUGHT 09-18-2011 SARITA EDWARDO ACCIDENTALL Y IN OR BETWEEN OBJECTS 5289 OTHER&UNSPE 07-05-2011 RECHTIN FELT STRIP FINISHER CIFIED DISEASES THE ORAL SOFT TISSUES 4659 ACUTE URIS 03-06-2011 REBECCA SHEPHERD OF UNSPECIFIED SITE 57690 OTHER ACUTE 02-04-2011 [facility] EMERGENC[facility] SERVICES 7881 DYSURIA 02-04-2011 [facility] 40315 DYSPHASIA 01-20-2011 [place] DUE TO [facility] ULAR DISEASE 45915 ESOPHAGEAL 01-20-2011 [place] REFLUX [facility] 66054 DYSPHAGIA 01-20-2011 [facility] [place] UNSPECIFIED RADIOLOGY 5990 [...] WEINER [place]SE [place] DISORDERS 7823 EDEMA 05-29-2010 [facility] HOSPITA 21388 OTHER CHEST 05-29-2010 [place] PAIN [facility] 4293 CARDIOMEGAL 05-23-2010 [facility] EMERGENCY SERVICES 97145 SHORTNESS 05-23-2010 [facility] [place] OF BREATH RADIOLOGY 5951 CHRONIC 04-03-2010 [facility] INTERSTITIA [facility]ED[facility]RICS L CYSTITIS & INTER 9595 INJURY 04-03-2010 [facility] OTHER AND PEDIATRICS UNSPECIFIED & INTER FINGER 1330 SCABIES 01-17-2010 [facility] INTER 80330 ABDOMINAL 01-03-2010 [facility], N EMERGENCY PERIUMBILIC SERV 7245 UNSPECIFIED 12-17-2009 [facility] 35097 ABDOMINAL 12-17-2009 [facility], N EMERGENCY GENERALIZED PHYS 23112 UNSPECIFIED 10-13-2009 [facility] OF URINE SERVICES ASSOCIATES V4589 OTHER 10-13-2009 [facility] POSTSURGICA [facility]Y L STATUS SERVICES OTHER ASSOCIATES 51957 URINARY 08-31-2009 BRIAN BECKWITH 6918 OTHER 08-09-2009 [facility] ATOPIC PEDIATRICS DERMATITIS & INTERNAL AND RELATED MEDICINE CONDITIONS PLLC 7291 UNSPECIFIED 07-10-2009 [facility] MYOSITIS 36209 UNSPECIFIED 06-13-2009 [place] VAGINITIS OBSTETRICS AND AND VULVOVAGINI GYNECOLOGY TIS 3671 MYOPIA 05-10-2009 YUSUF MON S 50085 OTHER 05-10-2009 RONY MON S DEVIATION OF EYE MOVEMENTS 7149 UNSPECIFIED 03-22-2009 LAB [facility]GE[facility] [employer] [employer]ING Y POLYARTHROP ATHY 67288 DENTAL 03-21-2009 SANDEEP HUNTLEY EXTENDING INTO DENTINE 5220 PULPITIS 03-21-2009 NANDO HUNTLEY 35056 UNSPECIFIED 03-18-2009 [facility] ARTHOPATHY, SERVICES HAND ASSOCIATES 93440 LUMP OR 12-27-2008 [place] MASS IN [facility] BREAST [facility] 27295 CHRONIC 08-18-2008 PATHOLOGY & CHOLECYSTIT CYTOLOGY IS LAB 7283 OTHER 08-16-2008 [facility] DISORDERS 90913 ABDOMINAL 08-03-2008 [place] PAIN RIGHT [facility] UPPER HOSPITAL QUADRANT 42304 VOMITING 07-25-2008 [facility] 26718 NAUSEA WITH 07-21-2008 [place] VOMITING [facility] 62595 UNSPECIFIED 07-18-2008 [facility] PYELONEPHRI [facility] TIS 04989 METHICILLIN 2007 [facility] STAPH INF CCE & UNS SITE 6825 CELLULITIS 2007 [place] AND ABSCESS [facility] V090 INFECTION 2007 [facility] RESISTANT PENICILLINS V6759 OTHER 2007 [place] [facility] OTHER E87.6 HYPOKALEMIA [...] ia de te s n re d MT 00 01 0 No ED 05 -1 [...] 2- 7- 00 MA 67 ER ve MT 59 20 20 RT 5 SO ED [...] 12 00 60 30 71 KN Ac MT 09 -0 -1 .0 L- 62 IG [...] EL AR A MA CY #5 71 MT 68 12 12 00 12 2 71 [...] Procedure DOS Code Location Performer Comment RADIOLOGI 64058 [place] ASUNCION C EXAM 7 MEDICAL CHEST 2 IMAGING VIEWS ASS FRONTAL&L ATERAL DRUG TST G0477 [facility] 6 PAIN PBL BEING MANAGEMEN READ DC T OPT OBV ONLY DRUG TEST G04[address] [facility] [address] [facility] HOSPITAL PRESUMP;I NSTRUMENT ED CHEMISTRY ANLYZER 3D 51427 YOEL RAYGOZA ALL RENDERING 6 MEDICAL W/INTERP IMAGING & ASS POSTPROCE SS SUPERVISI [place] MRI 49242 YOEL RAYGOZA ALL SPINAL 6 MEDICAL CANAL IMAGING CERVICAL ASS W/[place] [address] YOEL TREVIÑOINEKE HEAD/BRAI 6 MEDICAL CLIFF N W/O IMAGING CONTRAST ASS MATERIAL RADIOLOGI 86388 [place] NICKELS C EXAM 6 MEDICAL NANCY CHEST 2 SERV VIEWS FOUNDATIO FRONTAL&L N ATERAL BX BREAST 46260 YOEL RAYGOZA ALL W/DEVICE 6 MEDICAL 1ST IMAGING LESION ASS ULTRASOUN D GUID DIAGNOSTI G0206 YOEL RAYGOZA ALL C 6 MEDICAL MAMMOGRAP IMAGING HY INCL [place] [address] [facility] PICKLESIM SURG 6 KATHERINE & ER JR KEREN PATHOLOGY DUBILIER GROSS&YOSHI ROSCOPIC EXAM DIAGNOSTI G0204 JOSE GARCIA C 6 [facility] H[facility]OS[facility] MAMMOGRAP INC INC HY INCL CAD WHEN PERF; BILAT US BREAST 57182 JOSE GARCIA UNI REAL 6 MEM HOS[facility]OS[facility] TIME INC INC WITH IMAGE COMPLETE US BREAST 80922 YOEL RAYGOZA ALL UNI REAL 6 MEDICAL [place] [address] JOSE GARCIA TRANSVAGI 6 MEM HOSP [facility] NAL INC INC COMPUTER- 16418 JOSE GARCIA AIDED 6 [facility] H[facility] DETECTION INC INC SCREENING MAMMOGRAP HY SCREENING G0202 JOSE GARCIA 6 [facility] HOS[facility]OS[facility] MAMMOGRAP INC INC HY SAIGE INCL CAD WHEN PERFORMD COLOREC G0328 JOSE EDUARDO CHRISTENSEN CA SCR; 6 AMPARO TIMMONS CARLOS FOB TST IMMUNO 1-3 SIMULTANE OUS CULTURE 49738 JOSE GARCIA BACTERIAL 6 [facility] HOS[facility] INC INC QUANTTATI VE COLONY COUNT URINE CULTURE 17438 JOSE [facility]ARCIA BCT 6 MEM HOS[facility]OS[facility] ISOL&PRSM INC INC PTV ID ISOLATE EA URINE CULTURE 76026 JOSE EDUARDO CHRISTENSEN CHLAMYDIA 6 AMPARO TIMMONS CARLOS ANY SOURCE SUSCEPTIB 15256 JOSE GARCIA LTY STDY 6 MEM HOSP [facility] HOS[facility] ANTIMICRB INC INC IAL MICRO/AGA R DILUTJ IADNA 23637 JOSE EDUARDO Lyon NEISSERIA 6 AMPARO CHRISTENSEN MD GONORRHOE AE DIRECT PROBE TQ URINLS 53168 JOSE EDUARDO Lyon SHAWNEE DIP 6 AMPARO TIMMONS CAR STICK/[place] [address] [facility] ABDOMEN & 6 MEDICAL JOSE LUIS PELVIS IMAGING W/[place] [address] JOSE GARCIA INFUSION 6 MEM HOSP MEM HOSP THERAPY INC INC PROPHYLAX IS/[place] [address] JOSE GARCIA INFUSION 6 [facility] THERAPY/P INC INC ROPHYLAXI S /DX 1ST TO 1 HR THERAPEUT 86451 JOSE GARCIA IC 6 [facility] HOS[facility] INJECTION INC INC IV PUSH EACH [facility] G0463 JOSE GARCIA OUTPATIEN 5 MEM H[facility] MEM HOS[facility] T CLIN INC INC VISIT ASSESS & [place] [address] JOSE GARCIA INFUSION 5 MEM H[facility] THERAPY/P INC INC ROPHYLAXI S /DX 1ST TO 1 [place] [address] JOSE GARCIA INFUSION 5 [facility] THER INC INC PROPH ADDL SEQUENTIA L TO 1 HR THERAPEUT 57888 JOSE GARCIA IC 5 [facility] INJECTION INC INC IV PUSH EACH NEW DRUG IAADI 86986 JOSE GARCIA INFLUENZA 5 MEM H[facility]OS[facility] B VIRUS INC INC IAADI 51883 JOSE GARCIA INFFLUENZ 5 [facility] [place] [address] JOSE GARCIA HEPATITIS 5 [facility] [place] [place] [address] JOSE GARCIA STREPTOCO 5 MEM H[facility] CCUS INC INC GROUP A BLOOD 98820 JOSE GARCIA COUNT 5 [facility] COMPLETE INC INC AUTO&AUTO DIFRNTL WBC HEPATITIS 62254 JOSE GARCIA B CORE 5 [facility] ANTIBODY INC INC HBCAB TOTAL HEPATITIS 33439 JOSE Coyne SURF 5 [facility] H[facility] ANTIBODY INC INC HBSAB HEPATITIS 85653 JOSE GARCIA A 5 [facility] ANTIBODY INC INC HAAB HEPATITIS 57428 JOSE GARCIA C 5 [facility] ANTIBODY INC INC CUL BACT 53426 JOSE GARCIA XCPT 5 [facility] HOS[facility] URINE INC INC BLOOD/STO OL AEROBIC ISOL RADIOLOGI 09162 YOEL RAYGOZA ALL C EXAM 5 MEDICAL CHEST 2 IMAGING VIEWS ASS FRONTAL&L ATERAL URNLS DIP 24461 JOSE GARCIA 5 [facility] STICK/TAB INC INC LET REAGENT AUTO MICROSCOP Y COMPREHEN 80581 JOSE GARCIA SIVE 5 [facility] METABOLIC INC INC PANEL 3D 07711 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 5 MEDICAL JOSE LUIS W/INTERP IMAGING & ASS POSTPROCE SS SUPERVISI ON MRI 16698 [facility] SPINAL 5 MEDICAL JOSE LUIS CANAL IMAGING CERVICAL ASS W/O CONTRAST MATRL MRI 76030 YOEL RAYGOZA ALL SPINAL 5 MEDICAL CANAL IMAGING LUMBAR ASS W/O CONTRAST MATERIAL 3D 38855 YOEL RAYGOZA ALL RENDERING 5 MEDICAL W/INTERP IMAGING & [place] [address] JOSE GARCIA TRANSVAGI 5 [facility] H[facility] NAL INC INC COLLECTIO 24284 [facility] N VENOUS 5 JOAO BLOOD PEDIATRIC VENIPUNCT S & [place] [address] [facility] MENDOSAASUNCION ABDOMEN & 5 MEDICAL JOSE LUIS PELVIS IMAGING W/O ASS CONTRAST MATERIAL SEDIMENTA 87541 JOSE GARCIA TION RATE 5 [facility] HOS[facility] RBC INC INC NON-AUTOM ATED RADEX 42189 JOSE GARCIA HAND 5 [facility] MINIMUM [address] [place] [address] YOEL ASUNCION ABDOMEN & 4 MEDICAL JOSE LUIS PELVIS IMAGING W/O ASS CONTRAST MATERIAL 3D 47607 [facility] MENDOSAASUNCION RENDERING 4 MEDICAL JOSE LUIS IMAGING W/INTERP& ASS POSTPROC DIFF WORK STATION COLLECTIO 64423 JOSE GARCIA N VENOUS 4 [facility] HOS[facility]OS[facility] BLOOD INC INC VENIPUNCT URE BASIC 36519 JOSE GARCIA METABOLIC 4 [facility] H[facility]OS[facility] PANEL INC INC CALCIUM TOTAL BLOOD 45715 JOSE GARCIA COUNT 4 MEM HOSP MEM [...] INC FUNCT NOT G0237 FCE-FCE 15MIN THERAPEUT 30502 JOSE GARCIA IC 4 [facility] H[facility] PROPHYLAC INC INC TIC/DX INJECTION SUBQ/[place] [address] JOSE GARCIA INFUSION 4 [facility] H[facility] THERAPY/P INC INC ROPHYLAXI S /DX 1ST TO 1 HR THERAPEUT 46432 JOSE GARCIA IC 4 [facility] INJECTION INC [place] [address] [facility] JEREMIAH SURG 4 KATHERINE & DIONTE PATHOLOGY DUBILIER GROSS&YOHSI ROSCOPIC EXAM LEVEL V [address] [facility]IP[facility] JEREMIAH SURG 4 KATHERINE & DIONTE PATHOLOGY DUBILIER GROSS&YOSHI ROSCOPIC EXAM NONINVASI 14084 JOSE GARCIA VE 4 [facility] EAR/PULSE INC INC OXIMETRY OVERNIGHT MONITOR BASIC 64815 JOSE GARCIA METABOLIC 4 [facility] PANEL INC INC CALCIUM TOTAL URNLS DIP 49029 [facility] STICK/TAB INC INC LET REAGENT AUTO MICROSCOP Y URINE 53912 [facility] TEST INC INC VISUAL COLOR CMPRSN METHS POTASSIUM 31983 JOSE GARCIA SERUM 4 [facility] PLASMA/WH INC INC OLE BLOOD BLOOD 00385 JOSE GARCIA COUNT 4 [facility] HEMATOCRI INC INC T BLOOD 37539 JOSE GARCIA COUNT 4 [facility] HEMOGLOBI INC INC N COLLECTIO 15504 JOSE GARCIA N VENOUS 4 [facility] BLOOD INC INC VENIPUNCT URE ANESTHESI 09668 [facility] FABIO A 4 ANESTH CROW INTRAPERI OF THE TONEAL BLUE LOWER ABD W/LAPS NOS LAPS 95866 JOSE GARCIA W/VAG 4 [facility] HYSTERECT INC INC 250 GM/&RMVL TUBE&/OVA KIRK INJECTION J2405 JOSE GARCIA [facility] ONDANSETR INC INC ON HCL PER 1 MG COMPREHEN 29689 [facility] SIVE 3 Y Y METABOLIC [facility] [place] [address] [facility] TRANSVAGI 3 Y Y NAL [facility] BLOOD 82927 [facility] COUNT 3 Y Y COMPLETE [facility] AUTOMATED CUL BACT 37854 [facility] XCPT 3 N N URINE [facility] BLOOD/STO HOSPITA HOSPITA OL AEROBIC ISOL IAADIADOO 77328 [facility] 3 N N STREPTOCO [facility] CCUS HOSPITA HOSPITA GROUP A RADEX HIP 06084 [facility] 3 N N UNILATERA [facility] COMMUNITY L HOSPITA HOSPITA COMPLETE MINIMUM 2 VIEWS NONCOVERE A9270 [facility] D ITEM OR 2 N N SERVICE [facility] COMMUNITY HOSPITA HOSPITA RADEX [address] [facility] [place]ARY[place] MAT HAND 2 RADIOLOGY MINIMUM 3 VIEWS URNLS DIP 93512 [facility] 1 N N STICK/TAB [facility] LET HOSPITA HOSPITA REAGENT AUTO MICROSCOP Y URINE 69373 [facility] 1 N N TEST [facility] VISUAL HOSPITA [place] [address] [facility] [place] POLL[place] ABDOMEN & 1 RADIOLOGY DIONTE PELVIS W/O CONTRAST MATERIAL URNLS DIP 52632 [facility] 1 STICK/TAB PEDIATRIC PEDIATRIC LET RGNT S & INTER S & INTER [place] W/[place] [address] [facility] FERNANDEZ INFUSION 1 JOAO HYDRATION PEDIATRIC INITIAL S & INTER 31 MIN-1 HOUR THERAPEUT [address] [facility] IC 1 N N PROPHYLAC [facility] TIC/DX HOSPITA HOSPITA INJECTION SUBQ/[place] [address] [facility] TRACT UPR 1 N N W/SM INT COMMUNITY COMMUNITY W/MULT HOSPITA [place] [address] [facility] [place] MARYA MAT UPR W/WO 1 RADIOLOGY GLUCOSE W/SM INTEST FOLLW-THR U ADMINISTR G0008 BLUEGRASS FERNANDEZ ATION OF 1 JOAO INFLUENZA PEDIATRIC VIRUS S & INTER VACCINE INFLUENZA Q2038 BLUEGRASS FERNANDEZ VACC 1 JOAO SPLIT PEDIATRIC VIRUS 3 S & INTER YRS & > IM FLUZONE ECHO 76019 [facility] TTHRC R-T 1 N N 2D [facility] W/WOM-MOD HOSPITA HOSPITA E COMPL SPEC&COLR D ECG 47782 ELVER FERNANDEZ ROUTINE 1 JOAO ECG PEDIATRIC W/LEAST S & INTER 12 LDS W/I&R COLLECTIO 55321 ELVER THOMSONIGHT N VENOUS 1 JOAO BLOOD PEDIATRIC VENIPUNCT S & INTER URE RADIOLOGI 79754 LEX MONTEMAYOR C EXAM 1 EMERGENCY RENTERIA CHEST 2 SERVICES VIEWS FRONTAL&L ATERAL RADEX 27421 [facility] HAND 0 N N MINIMUM 3 [facility] COMMUNITY VIEWS HOSPITA HOSPITA INJECTION J1885 BETTIEGRASS FERNANDEZ 0 JOAO KETOROLAC PEDIATRIC S & INTER TROMETHAM INE PER 15 MG INJECTION J2550 BETTIEGRASS FERNANDEZ 0 JOAO PROMETHAZ PEDIATRIC INE HCL S & INTER UP TO [address] PELVIS 12318 [facility] [place] QUINTANILAL- 0 RADIOLOGY VILLAV, E W/[place] [address] [facility] [place] QUINTANILLA- ABDOMEN 0 RADIOLOGY VILLAV, E W/CONTRAS A T MATERIAL ANES 21648 [place] HEIDE, TRANSURET 0 ANESTHESI TACHO S HRAL A GROUP W/URETHRO PSC CYSTOSCOP Y NOS URNLS DIP 30562 ELVER FERNANDEZ, 0 EN A STICK/TAB PEDIATRIC LET RGNT S & NON-AUTO INTERNAL W/O MEDICINE MICRSCP PLLC PH BODY 31693 [facility] SONIA FLUID NOT 0 N JR, OBSTETRIC ANNIE ELSEWHERE S AND GYNECOLOG SPECIFIED Y SMR PRIM 13862 [facility] SONIA SRC WET 0 N JR, [place] OBSTETRIC ANNIE NFCT AGT S AND GYNECOLOG Y MRI 69675 [facility] SPINAL 0 N N CANAL [place] W/O CONTRAST MATERIAL OPHTH 39359 ELIESER MON, MEDICAL 0 JITANDER JITANDER XM&EVAL S S COMPRE NEW PT 1/> VST BLOOD 91707 LAB MEGAN LAB MEGAN COUNT 9 [employer]IC [employer] COMPLETE [employer] AUTO&AUTO DIFRNTL WBC SEDIMENTA 56049 [facility] MEGAN TION RATE 9 AMERIC AMERIC RBC HOLDING HOLDING AUTOMATED C-REACTIV 86206 [facility] MEGAN E PROTEIN 9 [employer] RHEUMATOI 28215 [facility] MEGAN D FACTOR 9 AMERIC AMERIC QUANTITAT HOLDING HOLDING SHAUNNA COMPREHEN 32782 LAB MEGAN LAB MEGAN SIVE 9 [employer]IC [employer] METABOLIC [employer] HOLDING PANEL THER 31480 YUKO HUNTLEY PROPH/DX 9 , NANDO COLLIER NJX IV W W PUSH SINGLE/1S T SBST/DRUG DEEP D9220 YUKO HUNTLEY SEDATION/ 9 , NANDO COLLIER GENERAL W W ANESTHESI A-1ST 30 MINUTES RADEX 95674 [facility] [place] LAUREL, HAND 9 RADIOLOGY MARCIE G MINIMUM 3 VIEWS ORTHOPANT 46581 YUKO HUNTLEY OGRAM 9 , NANDO COLLIER W W COLLECTIO 83725 [facility] N VENOUS 9 N N BLOOD [facility] U[facility] GONADOTRO 09497 [facility] PIN 9 N N [facility] QUALITATI VE BLOOD 01165 [facility] COUNT 9 N N COMPLETE [facility] AUTO&[facility] DIFRNTL WBC LEVEL III 69023 PATHOLOGY PATHOLOGY SURG 9 & & PATHOLOGY CYTOLOGY CYTOLOGY LAB LAB GROSS&YOSHI ROSCOPIC EXAM THROMBOPL 84891 [facility] ASTIN 9 N N TIME [facility]OSPITAL PLASMA/WH OLE BLOOD PROTHROMB 00256 [facility] IN TIME 9 N N [facility] GONADOTRO 83623 [facility] PIN 9 N N [facility] QUALITATI VE BLOOD 87121 [facility] COUNT 9 N N COMPLETE [facility] AUTO&AUTO [facility] DIFRNTL WBC COMPREHEN 69144 [facility] SIVE 9 N N [facility] BILIRUBIN 58340 [facility] DIRECT 9 N N [facility] COLLECTIO 55149 [facility] N VENOUS 9 N N BLOOD [facility] URE HEPATBL 66452 [facility] DUX SYS 9 N N [facility]G [facility] IN[facility] J2805 [facility] 9 N N [address] [place] [address] [facility] ABDOMINAL 9 N N [facility] W/[place] [address] [facility] ABDOMEN 9 N N W[facility] MATERIAL CT PELVIS 43076 [facility] 9 N N [facility] MATERIAL COMPREHEN 39932 [facility] SIVE 9 N N METABOLIC [facility] [address] [facility] LIPASE 9 N N [facility] URNLS DIP 72617 [facility] 9 N N STICK/TAB [facility] NON-AUTO W/O MICRSCP GONADOTRO 12017 [facility] PIN 9 N N [facility] QUALITATI VE BLOOD 21410 [facility] COUNT 9 N N COMPLETE [facility] AUTO&AUTO [facility] DIFRNTL WBC THER 90499 [place] PROPH/DX 9 N N NJX IV [facility] SINGLE/1S T SBST/DRUG THERAPEUT 43492 [facility] IC 9 N N INJECTION [facility] EACH NEW DRUG UNCLASSIF J3490 [facility] IED DRUGS 9 N N [facility] INJECTION J2405 [facility] 9 N N [facility] PER 1 MG HOSPITAL G0378 [facility] OBSERVATI 9 N N [facility] PER HOUR BLOOD 14077 [facility] COUNT 9 N N [facility]TE [facility] AUTO&AUTO [facility] DIFRNTL WBC BLOOD 70804 [facility] COUNT 9 N N [facility] AUTO&AUTO [facility] DIFRNTL WBC CUL BACT 39913 [facility] AEROBIC 9 N N [facility] DEFINITIV E EA ISOL CULTURE 00623 [facility] BACTERIAL 9 N N [facility] VE COLONY COUNT URINE SUSCEPTIB 31523 [facility] LTY STDY 9 N N ANTIMICRB [facility] MICRO/AGA R DILUTJ INJECTION J2175 [facility] 9 N N [facility] E [facility] PER HOSPITAL HOSPITAL 100 MG HOSPITAL G0378 [facility] OBSERVATI 9 N N [facility] PER HOUR URNLS DIP 55042 [facility] 9 N N STICK/TAB [facility] AUTO MICROSCOP Y INJECTION J2550 [facility] 9 N N PROMETHAZ [facility] HOSPITAL UP TO 50 MG OTH 8604 [facility] INCISION 8 N N W/DRAINAG [facility] SKIN&SUBC UTANEOUS TISSUE Encounters Encounter Start End Date Code Location Performer Type Date HOSPITAL [facility] 6 6 HOSPITAL OFFICE 78068 [facility] 6 6 PAIN T NEW 45 MANAGEMEN MINUTES T HOSPITAL JOSE - 6 6 [facility] T HOSPITAL JOSE - 6 6 [facility] T EMERGENCY 06440 JO[facility] 6 6 [facility] T VISIT LIMITED/M INOR PROB EMERGENCY 89503 [place] AMES 6 6 [facility] [place] DEPARTMEN SERV T VISIT FOUNDATIO MODERATE N SEVERITY HOSPITAL UNIVERSIT - 6 6 Y OUTPATI HOSPITAL T HOSPITAL JOSE - 6 6 [facility] OUTPATIEN [facility] T OFFICE 57262 JOSE EDUARDO CHRISTENSEN OUTPATIEN 6 6 AMPARO GONZALEZ T VISIT 25 MINUTES OFFICE 31272 AGUIRRE PAD AGUIRRE PAD OUTPATIEN 6 6 T NEW 30 MINUTES HOSPITAL JOSE - 6 6 [facility] T HOSPITAL JOSE - OTHER 6 6 [facility] EMERGENCY 29202 JOSE 6 6 [facility] T VISIT HIGH/URGE NT SEVERITY [facility]OSPITAL [facility] - 6 6 [facility] OUTPATIEN [facility] T EMERGENCY 21379 PAIGE MALDONADO DEPT 6 6 PHYSICIAN YOSHI VISIT S, PLLC HIGH SEVERITY& THREAT FUNCJ OFFICE 82605 [place] SERA PHI OUTPATIEN 5 5 MEDICAL T NEW 30 SERV MINUTES FOUNDATIO N OFFICE 25686 [facility] JACKELYN OUTPATIEN 5 5 PHYSICIAN YOSHI T VISIT S GROUP 10 MINUTES OFFICE 68165 KARINA CRUZ OUTPATIEN 5 5 MD PRETTY, T VISIT PSC 10 MINUTES HOSPITAL JOSE - 5 5 [facility] OUTPATIEN INC T EMERGENCY 51301 JOSE 5 5 [facility] DEPARTMEN INC T VISIT HIGH/URGE NT SEVERITY HOSPITAL JOSE - 5 5 [facility] OUTPATIEN [facility] EMERGENCY 12217 PAIGE MALDONADO DEPT 5 5 PHYSICIAN YOSHI VISIT [facility] HIGH SEVERITY& THREAT [facility] OFFICE [address] [facility] OUTPATI[facility] 5 5 MD PRETTY, T NEW 45 PSC MINUTES HOSPITAL JOSE - 5 5 [facility] OUTPATIEN [facility] HOSPITAL JOSE - 5 5 [facility] OUTPATIEN INC HOSPITAL JOSE - 5 5 [facility] OUTPATIEN [facility] OFFICE 22554 ELVER FERNANDEZ OUTPATIEN 5 5 JOAO T VISIT PEDIATRIC 15 S & INTER MINUTES EMERGENCY 17230 PAIGE MIRANDA 5 5 [facility] T VISIT HIGH/URGE NT SEVERITY HOSPITAL JOSE - 5 5 [facility] OUTPATIEN [facility] EMERGENCY 40503 [facility] 5 [facility] T VISIT MODERATE SEVERITY HOSPITAL JOSE - 5 5 [facility] OUTPATIEN [facility] EMERGENCY 59091 JOSE 5 5 [facility] T VISIT LOW/MODER SEVERITY HOSPITAL JOSE - 5 5 [facility] OUTPATIEN [facility] EMERGENCY 09927 JOSE H[address]UYOMADE [address] [facility] T VISIT P MODERATE SEVERITY EMERGENCY 91374 JOSE 5 5 [facility] T VISIT LOW/MODER SEVERITY OFFICE 36092 ELVER FERNANDEZ OUTPATIEN 5 5 JOAO T VISIT PEDIATRIC 15 S & INTER MINUTES OFFICE 44087 ELVER OROPEZA OUTPATIEN 5 5 SILVINA T VISIT PEDIATRIC 15 S & INTER MINUTES EMERGENCY 77691 JOSE 5 5 [facility] DEPARTMEN INC T VISIT LOW/MODER SEVERITY HOSPITAL JOSE - 5 5 [facility] OUTPATIEN [facility] T OFFICE 52723 ELVER FERNANDEZ OUTPATIEN 4 4 JOAO T VISIT PEDIATRIC 15 S & INTER MINUTES EMERGENCY 38725 [facility] DEPT 4 4 JEFFRY YOSHI VISIT EMERGENCY HIGH PHYS SEVERITY& THREAT FUNCJ EMERGENCY 60399 [facility] DEPT 4 4 JEFFRY YOSHI VISIT EMERGENCY HIGH PHYS SEVERITY& THREAT [facility] HOSPITAL JOSE - 4 4 [facility] OUTPATIEN INC T EMERGENCY 25474 [facility] 4 4 JEFFRY YOSHI DEPARTMEN EMERGENCY T VISIT PHYS HIGH/URGE NT SEVERITY Emergency FRANCE Maldonado MD (ER) 4 07:32 4 08:01 [facility] EMERGENCY 99907 LEXERIK MALDONADO 4 4 EMERGENCY YOSHI DEPARTMEN SERVICES T VISIT HIGH/URGE NT SEVERITY EMERGENCY 95814 LEX STEIN 3 3 EMERGENCY EDWARDO DEPARTMEN SERVICES T VISIT HIGH/URGE NT SEVERITY HOSPITAL UNIVERSIT - 3 3 Y [facility] - 3 3 N [facility] 04245 [facility] 3 3 N [facility] COMMUNITY T VISIT HOSPFORMERLY [facility] MODERATE SEVERITY HOSPITAL [facility] - 3 3 N OUTPATIMARY [facility] HOSPITA OFFICE 47599 REBECCA FERNANDEZ OUTPATIEN 3 3 JOAO JOAO T VISIT 15 MINUTES OFFICE 50082 [facility] 2 2 N TERRI N TERRI T NEW 30 MINUTES HOSPITAL [facility] - 2 2 N [facility] EMERG[facility] 83059 [facility] 2 2 N DEPARTMEN COMMUNITY T VISIT HOSPITA HIGH/URGE NT SEVERITY EMERGENCY 67588 [place] JOCELYN 2 2 MEDICAL I ALI DEPARTMEN SERV T VISIT FOUNDATIO MODERATE SEVERITY EMERGENCY 35200 RECHTIN RECHTIN 2 2 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 DEPARTMEN T VISIT MODERATE SEVERITY OFFICE 56868 FERNANDEZ FERNANDEZ OUTPATIEN 1 1 JOAO JOAO T VISIT 15 MINUTES HOSPITAL [facility] - 1 N OUTPATIEN COMMUNITY T HOSPITA EMERGENCY 02349 [facility] 1 1 N [facility] COMMUNITY T VISIT HOSPITA HIGH/URGE NT SEVERITY EMERGENCY 75129 LEX CELLAROSI DEPT 1 1 EMERGENCY - YORBA VISIT SERVICES PAT HIGH SEVERITY& [facility] - 1 N OUTPATI COMMUNITY T HOSPITA OFFICE 43148 BLUEGRASS FERNANDEZ OUTPATIEN 1 1 JOAO T VISIT PEDIATRIC 15 S & INTER MINUTES OFFICE 49501 BLUEGRASS FERNANDEZ OUTPATIEN 1 1 JOAO T VISIT PEDIATRIC 15 S & INTER MINUTES OFFICE 45988 [place] ERNST OUTPATIEN 1 1 DERMATOLO CON T VISIT GY AND 10 SKIN CARE MINUTES HOSPITAL [facility] - 1 N OUTPATIEN COMMUNITY T HOSPITA OFFICE 11450 BLUEGRASS FERNANDEZ OUTPATIEN 1 1 JOAO T VISIT PEDIATRIC 25 S & INTER MINUTES EMERGENCY 82344 LEX MONTEMAYOR 1 1 EMERGENCY RENTERIA [facility] SERVICES T VISIT HIGH/URGE NT SEVERITY OFFICE 95296 [place] ERNST OUTPATIEN 1 1 DERMATOLO CON T NEW 20 GY AND MINUTES SKIN CARE OFFICE 95360 BLUEGRASS FERNANDEZ OUTPATIEN 1 1 JOAO T VISIT PEDIATRIC 15 S & INTER MINUTES OFFICE 80710 BLUEGRASS FERNANDEZ OUTPATIEN 1 1 JOAO T VISIT PEDIATRIC 15 S & INTER MINUTES HOSPITAL [facility] - 0 0 N OUTPATIEN COMMUNITY T HOSPITA OFFICE 39721 BLUEGRASS FERNANDEZ OUTPATIEN 0 0 JOAO T VISIT PEDIATRIC 15 S & INTER MINUTES OFFICE 71892 BLUEGRASS FERNANDEZ OUTPATIEN 0 0 JOAO T VISIT PEDIATRIC 15 S & INTER MINUTES OFFICE 05621 BLUEGRASS FERNANDEZ OUTPATIEN 0 0 JOAO T VISIT PEDIATRIC 15 S & INTER MINUTES EMERGENCY 19711 [facility] 0 0 JEFFRY DEPARTMEN EMERGENCY T VISIT SERV HIGH/URGE NT SEVERITY HOSPITAL [facility] - 0 0 HOSPITAL OUTPATIEN T EMERGENCY 00722 [facility] W 0 0 JEFFRY DEPARTMEN EMERGENCY T VISIT PHYS MODERATE SEVERITY OFFICE 90295 BLUEWING FERNANDEZ OUTPATIEN 0 0 JOAO T VISIT PEDIATRIC 25 S & INTER MINUTES OFFICE 10416 BLUEWING FERNANDEZ OUTPATIEN 0 0 JOAO T VISIT PEDIATRIC 15 S & INTER MINUTES OFFICE 31522 BLUEWING FERNANDEZ OUTPATIEN 0 0 JOAO T VISIT PEDIATRIC 15 S & INTER MINUTES EMERGENCY 72030 LEX STEIN, AVELINOT 0 0 EMERGENCY EDMUNDO W VISIT SERVICES HIGH SEVERITY& ASSOCIATE THREAT S FUNCJ EMERGENCY 00472 [facility], 0 0 JEFFRY SHERRY Monte DEPARTMEN EMERGENCY T VISIT PHYS INC HIGH/URGE NT SEVERITY EMERGENCY 60918 LEX HOANG, 0 0 EMERGENCY BIPIN DEPARTMEN SERVICES T VISIT HIGH/URGE ASSOCIATE NT S SEVERITY OFFICE 34498 AMENA BECKWITH, OUTPATIEN 0 0 NANDO Peguero VISIT 25 MINUTES OFFICE 79867 AMENA BECKWITH OUTPATIEN 0 0 NANDO Peguero NEW 30 MINUTES OFFICE 59634 ELVER FERNANDEZ, OUTPATIEN 0 0 EN A T VISIT PEDIATRIC 15 S & MINUTES [facility] OFFICE 26191 VIK QUEZADA II OUTPATIEN 0 0 [facility] SLEEP PRAVEEN T VISIT AND REHA 10 MINUTES OFFICE 38306 VIK QUEZADA II, OUTPATIEN 0 0 [facility] SLEEP JUSTIN C T VISIT AND 10 REHAB MINUTES [facility] OFFICE 32754 [facility] ARENASN OUTPATIEN 0 0 N JR, T VISIT OBSTETRIC ANNIE 10 S AND MINUTES GYNECOLOG Y OFFICE 34490 ODALYS LUNDYELLEN OUTPATIEN 0 0 N JR, T NEW 30 OBSTETRIC ANNIE MINUTES S AND GYNECOLOG Y OFFICE 53432 ELVER FERNANDEZ, OUTPATIEN 0 0 EN A T VISIT PEDIATRIC 15 S & MINUTES [facility] HOSPITAL [facility] - 0 0 N [facility] OFFICE 28145 ELVER FERNANDEZ, OUTPATIEN 0 0 EN A T VISIT PEDIATRIC 15 S & MINUTES [facility] EMERGENCY 54929 LEX GONZALEZLS, 9 9 EMERGENCY [facility] SERVICES T VISIT MODERATE ASSOCIATE SEVERITY S OFFICE 98674 YUKO HUNTLEY OUTPATIEN 9 9 , NANDO COLLIER 10 W [facility] - 9 9 N [facility] - 9 9 N [facility] - 9 9 N [facility] - 9 9 N [facility] - 9 9 N [facility] EMERGENCY 80929 [facility] 9 9 N [facility] MODERATE SEVERITY HOSPITAL [facility] - 9 9 N [facility] - 9 9 N [facility] - 8 8 N [facility] EMERGENCY 24802 [facility] 8 8 N [facility] LIMITED/M INOR PROB EMERGENCY 05524 [facility] 8 8 N [facility] LOW/MODER SEVERITY HOSPITAL [facility] - 8 8 N [facility]
--- OUTSIDE RECORDS SUMMARY | 2017-01-31 17:45 | External Medical Summary Rpt | CCD ---
Author Author , WENDY Organization WENDY Address Unknown Phone [email or web address] Immunization Name Date Rout CVX Reac Dose Comm Prov Is Faci e tion ent ider Refu lity Give sed n Td 05-2 113 999 Hist H149 No H149 (janeen 4-20 ori lt), 07 al Info P-Fr rmat ee ion - Sour ce Unsp ecif ied
--- OUTSIDE RECORDS SUMMARY | 2017-01-31 17:45 | External Medical Summary Rpt | CCD ---
Demographics Preferred Language Beninese Marital Status Unknown Jew Affiliation Unknown Race Unknown Ethnic Group Unknown Author Author , WENDY NGUYEN Address Unknown Phone [email or web address] Care Team Providers Care Freight Loader Name Role Phone [facility], Unavailable Unavailable [facility] Purpose Continuity of Care Document - 05-06-2010 through 2016 Medications Na ND Rx Da Fi Fi Am Da Di Ph RX Ph St me C No te ll ll ou ys ag ar # ys at rm s nt no ma ic us Or Da si cy ia de te s n re d DI 00 06 06 0 60 60 [...] A MA CY CL 45 01 02 1 28 28 HO 60 KN Ac OT 80 -1 -1 .0 ME 11 IG ti RI 20 7- 4- 00 TO 46 HT ve MA 43 20 20 WN 5 ZO 41 11 11 JUANA LE 1 PH EL AR A 1% MA CY CR EA M CL 45 01 01 1 28 28 HO 60 KN Ac OT 80 -1 -1 .0 ME 11 IG ti RI 20 7- 7- 00 TO 46 HT ve MA 43 20 20 WN 5 ZO 41 11 11 JUANA LE 1 PH EL AR A 1% MA CY CR EA M
--- OUTSIDE RECORDS SUMMARY | 2017-01-31 17:45 | External Medical Summary Rpt ---
Author Author WENDY Rodriguez, WENDY Rodriguez Organization [employer] Address Unknown Phone Unavailable
--- OUTSIDE RECORDS SUMMARY | 2017-01-31 17:45 | External Medical Summary Rpt | CCD ---
Demographics Preferred Language Eritrean Marital Status Unknown Cheondoism Affiliation Unknown Race Unknown Ethnic Group Unknown Author Author , WENDY NGUYEN Address Unknown Phone [email or web address] Care Team Providers Care Check Airman Name Role Phone [facility], Unavailable Unavailable [...]
--- OUTSIDE RECORDS SUMMARY | 2017-01-31 17:45 | External Medical Summary Rpt | CCD ---
Author Author , WENDY Organization WENDY Address Unknown Phone [email or web address] Immunization Name Date Rout CVX Reac Dose Comm Prov Is Faci e tion ent ider Refu lity Give sed n Td 05-2 113 999 Hist H149 No H149 (janeen 4-20 ori lt), 07 al Info P-Fr rmat ee ion - Sour ce Unsp ecif ied
== END 2017-01-29 16:14 | disposition home or self-care (01) ==
LOC: UTC 15:29
DX: L23.7 Allergic contact dermatitis due to plants, except food (principal); J45.909 Unspecified asthma, uncomplicated; F17.210 Nicotine dependence, cigarettes, uncomplicated; Z88.6 Allergy status to analgesic agent